=== PATIENT | female | born 1980 | race African-American/Black ===

== ENCOUNTER 2017-05-16 18:37 | Emergency (ER) | payer OTHER ==
[2017-05-16 18:50] VITALS: BP 154/101; PULSE 84; TEMP 98.4; BMI 32.5
[2017-05-16] MEDS ORDERED: ALBUTEROL SO4 2.5/IPRATROPIUM 0.5 INH SOL 3 ML VIAL.NEB. NEB ONE ×2 (19:07→19:08)
--- NOTE | 2017-05-16 19:07 | PDOC ---
History of Present Illness <Je Briggs - Last Filed: 05/16/17 19:07> - General History Source: Patient Exam Limitations: No Limitations - History of Present Illness Initial Comments: 05/16/17 19:11 The patient is a 37 year old female, with a significant past medical history of asthma, who presents to the emergency department with shortness of breath for approximately 2 days. The patient reports her SOB began at approximately 18:00 yesterday with associated dry cough. Patient reports she was unable to sleep due to SOB. She reports using albuterol treatments (which she ran out of today) with no relief, and states she has a nebulizer but has been unable to find it. Patient reports back pain when she coughs. She reports a low grade fever on Sunday, which has resolved. She reports some weakness secondary to SOB but denies any sore throat, chills, headache, or dizziness. She denies any nausea, vomiting, diarrhea, or constipation. She denies any chest pain, diaphoresis, or palpitations. Patient reports she works as a [employer], but denies any sick contacts. She denies any recent travel. Patient has never taken steroids or been hospitalized for asthma. Allergies: NKDA Past Surgical History: Gastric Sleeve (2013), Gastric Bypass(2015), Hiatal hernia repair (2015) Social History: [employer]. Non smoker. No ETOH or drug use. Family History: Mother: DM. Grandmother: DM, HTN PCP: Dr. Nunez <Lilia Naqvi - Last Filed: 05/16/17 19:11> - General Chief Complaint: Asthma Stated Complaint: ASTHMA Time Seen by Provider: 05/16/17 18:54 Past History - Past Medical History Anemia: Yes Asthma: Yes GI Disorders: Yes (HIATAL HERNIA) HTN: Yes - Surgical History Abdominal Surgery: Yes (gastric sleeve) Gastric Stapling: Yes (SLEEVE 2013, BYPASS 2015) - Immunization History Immunization Up to Date: No - Psycho/Social/Smoking Cessation Hx Anxiety: No Suicidal Ideation: No Smoking Status: No Smoking History: Never smoked Have you smoked in the past 12 months: No Number of Cigarettes Smoked Daily: 0 Hx Alcohol Use: No Drug/Substance Use Hx: No Substance Use Type: None <Je Briggs - Last Filed: 05/16/17 19:07> <Lilia Naqvi - Last Filed: 05/16/17 19:11> - Past Medical History Allergies/Adverse Reactions: Allergies Allergy/AdvReac Type Severity Reaction Status Date / Time No Known Allergies Allergy Verified 05/16/17 18:43 Home Medications: Ambulatory Orders Albuterol Sulfate Inhaler - [Ventolin Hfa Inhaler -] 2 inh PO Q4H PRN 05/16/17 Iron 05/16/17 Review of Systems - Review of Systems Able to Perform ROS?: Yes Comments:: 05/16/17 19:11 CONSTITUTIONAL: Present: +fever Absent: no chills, no fatigue EYES: Absent: visual changes ENT: Absent: ear pain, no sore throat CARDIOVASCULAR: Absent: chest pain, no palpitations RESPIRATORY: Present: +cough, +SOB GI: Absent: abdominal pain, no nausea, no vomiting, no constipation, no diarrhea GENITOURINARY: Absent: dysuria, no frequency, no hematuria MUScULOSKELETAL: Present: +back pain Absent: no arthralgia, no myalgia SKIN: Absent: rash NEURO: Absent: headache <Kenzie Naqviarina - Last Filed: 05/16/17 19:11> *Physical Exam - Vital Signs Last Vital Signs Temp Pulse Resp BP Pulse Ox 98.4 F 84 18 154/101 98 05/16/17 18:42 05/16/17 18:42 05/16/17 18:42 05/16/17 18:42 05/16/17 18:42 <Je Briggs - Last Filed: 05/16/17 19:07> - Vital Signs Last Vital Signs Temp Pulse Resp BP Pulse Ox 98.4 F 84 18 154/101 98 05/16/17 18:42 05/16/17 18:42 05/16/17 18:42 05/16/17 18:42 05/16/17 18:42 - Physical Exam Comments: 05/16/17 19:11 GENERAL: Well-appearing, well-nourished. No apparent distress. HEENT: Normocephalic, atraumatic. PERRL, EOM intact. ENT was clear with no signs of upper respiratory infection. CARDIOVASCULAR: Normal S1, S2. Regular rate and rhythm. PULMONARY: Some splinting and intractable coughing with deep inspiration. But no evidence of respiratory distress. Lungs clear to auscultation bilaterally. No wheezing, rales or rhonchi. ABDOMEN: Soft, non-distended, non-tender. EXTREMITIES: Normal ROM in all four extremities. No gross deformities. SKIN: Warm, dry. No rash NEUROLOGICAL: No focal neurological deficits. <Lilia Naqvi - Last Filed: 05/16/17 19:11> *DC/Admit/Observation/Transfer <Je Briggs - Last Filed: 05/16/17 19:07> - Attestations Scribe Attestion: 05/16/17 19:11 Documentation prepared by Lilia Naqvi, acting as medical liaison for Je Trinidad MD. <Lilia Naqvi - Last Filed: 05/16/17 19:11> - Discharge Dispostion Condition at time of disposition: Good
--- NOTE | 2017-05-16 19:48 | PDOC ---
*Physical Exam - Vital Signs Last Vital Signs Temp Pulse Resp BP Pulse Ox 98.4 F 84 18 154/101 98 05/16/17 18:42 05/16/17 18:42 05/16/17 18:42 05/16/17 18:42 05/16/17 18:42 ED Treatment Course - Medications Given in the ED: ED Medications Discontinued Medications Generic Name Dose Route Start Last Admin Trade Name Kymberly PRN Reason Stop Dose Admin Albuterol/Ipratropium 1 amp 05/16/17 19:07 05/16/17 19:08 Duoneb - NEB 05/16/17 19:08 1 amp ONCE ONE Administration Progress Note - Progress Note Progress Note: Care of this patient received from Dr. Panchal. Cough improved and patient feels somewhat better after albuterol nebulizer treatment. Repeat chest exam performed: No wheezing and good air exchange heard. Clinical presentation most consistent with asthmatic bronchitis. The patient will receive a prescription for new albuterol inhaler as well as prescription for an new nebulizer (since patient is not sure where she stored her previous nebulizer since she moved; and albuterol for nebulizer treatments. Azithromycin, Z-Noe, will be started. Work documentation given to patient to not work tomorrow. She should follow-up with her doctor, Dr. Nunez on Sunday as previously scheduled. She should return to the emergency room if she has persistent cough or develops wheezing/ high fever *DC/Admit/Observation/Transfer Diagnosis at time of Disposition: Asthmatic bronchitis Qualifiers: Asthma severity: mild intermittent Asthma complication type: with acute exacerbation Qualified Code(s): J45.21 - Mild intermittent asthma with (acute) exacerbation - Discharge Dispostion Disposition: HOME Condition at time of disposition: Stable - Prescriptions Prescriptions: Nebulizer [Truneb Nebulizer] 1 each MC TID #1 each Albuterol 0.083% Nebulizer Paula [Ventolin 0.083% Nebulizer Soln -] 1 neb NEB Q6H #20 vial Albuterol Sulfate Inhaler - [Ventolin HFA Inhaler -] 1 - 2 inh PO QID #1 inhaler Azithromycin [Zithromax 250mg Tablets -] 250 mg PO UTDICT #6 tab - Referrals Referrals: Norris Nunez MD [Primary Care Provider] - 2 Days - Patient Instructions Printed Discharge Instructions: Asthma -- Adult Additional Instructions: Albuterol inhaler 1-2 puffs every 6 hours Albuterol nebulizer up to 4 times a day as needed for cough/wheezing Begin azithromycin (Z-Noe); taper over 5 days Return to ER if you have persistent cough/wheezing/shortness of breath Follow-up with Dr. Nunez on Sunday as planned No work tomorrow - Post Discharge Activity Work/School Note: Back to Work
== END 2017-05-16 20:10 | disposition home or self-care (01) ==
LOC: FER 18:37
PROC: 3E0F7GC Introduction of Other Therapeutic Substance into Respiratory Tract, Via Natural or Artificial Opening (ICD-10-PCS; principal; 2017-05-16)
DX: J45.21 Mild intermittent asthma with (acute) exacerbation (principal)
CPT/HCPCS: 99282-25

== ENCOUNTER 2018-11-13 16:31 | Emergency (ER) | payer OTHER ==
[2018-11-13 16:38] VITALS: BMI 37.8
--- NOTE | 2018-11-13 16:39 | PDOC ---
History of Present Illness - History of Present Illness Initial Comments: 11/13/18 16:34 38 yo F with h/o asthma who p/w atraumatic R knee pain. Patient reports progressive right knee pain and swelling, beginning 11-11-17, with no identifiable triggers or alleviators. Pain not improved with ice/heat. Patient states that her right knee "clicks," when she walks, but denies difficulty with ambulation. Patient denies SALGADO, vision change, cough, wheezing, palpitations, leg swelling/ pain, N/V, F,C, CP, SOB, urinary complaints, abdominal pain, diarrhea, constipation, BPR, hematuria, lightheadedness, weakness, sensory changes. PMHx: as noted above ROS: as noted SHx: Social Etoh. Denies tobacco, IVDA. Allergies: NKDA <Eren Buitrago - Last Filed: 11/13/18 18:09> <Wing Bryant S - Last Filed: 11/13/18 19:13> - General Chief Complaint: Pain, Acute Stated Complaint: right knee pain Time Seen by Provider: 11/13/18 16:32 Attending Attestation - Resident Resident Name: Eren Buitrago - ED Attending Attestation I have performed the following: I have examined & evaluated the patient, The case was reviewed & discussed with the resident, I agree w/resident's findings & plan, Exceptions are as noted - HPI HPI: Patient complained of pain in the right knee as of this am Denies any trauma, no fever no exposure to wilderness or sick individuals Overweight 11/13/18 18:56 - Physicial Exam PE: Alert, oriented x 3 ambulatory Mild to moderate swelling right knee, normal temperature 11/13/18 19:03 - Medical Decision Making Home rest elevation follow up with PMD in1-3 days 11/13/18 19:12 <Wing Bryant S - Last Filed: 11/13/18 19:13> Past History - Past Medical History Anemia: Yes Asthma: Yes GI Disorders: Yes (HIATAL HERNIA) HTN: Yes - Surgical History Abdominal Surgery: Yes (gastric sleeve) Gastric Stapling: Yes (SLEEVE 2013, BYPASS 2015) - Immunization History Immunization Up to Date: No - Suicide/Smoking/Psychosocial Hx Smoking Status: No Smoking History: Never smoked Have you smoked in the past 12 months: No Number of Cigarettes Smoked Daily: 0 Hx Alcohol Use: No Drug/Substance Use Hx: No Substance Use Type: None <Eren Buitrago - Last Filed: 11/13/18 18:09> <Wing Bryant - Last Filed: 11/13/18 19:13> - Past Medical History Allergies/Adverse Reactions: Allergies Allergy/AdvReac Type Severity Reaction Status Date / Time No Known Allergies Allergy Verified 11/13/18 16:32 Home Medications: Ambulatory Orders NK [No Known Home Medication] 11/13/18 Review of Systems - Review of Systems Comments:: 11/13/18 16:34 GENERAL/CONSTITUTIONAL: No fever or chills. No weakness. HEAD, EYES, EARS, NOSE AND THROAT: No change in vision. No ear pain or discharge. No sore throat. CARDIOVASCULAR: No chest pain or shortness of breath RESPIRATORY: No cough, wheezing, or hemoptysis. GASTROINTESTINAL: No nausea, vomiting, diarrhea or constipation. GENITOURINARY: No dysuria, frequency, or change in urination. MUSCULOSKELETAL:+ Right Knee pain. No joint or muscle swelling. No neck or back pain. SKIN: No rash NEUROLOGIC: No headache, vertigo, loss of consciousness, or change in strength/ sensation. ENDOCRINE: No increased thirst. No abnormal weight change HEMATOLOGIC/LYMPHATIC: No anemia, easy bleeding, or history of blood clots. ALLERGIC/IMMUNOLOGIC: No hives or skin allergy. <Eren Buitrago - Last Filed: 11/13/18 18:09> *Physical Exam - Physical Exam Comments: 11/13/18 16:35 GENERAL: Awake, alert, and fully oriented, in no acute distress HEAD: No signs of trauma, normocephalic, atraumatic EYES: PERRLA, EOMI, sclera anicteric, conjunctiva clear ENT: Hearing grossly normal, nares patent, oropharynx clear without exudates. Moist mucosa NECK: Normal ROM, supple, no lymphadenopathy, JVD, or masses LUNGS: No distress, speaks full sentences, clear to auscultation bilaterally HEART: Regular rate and rhythm, normal S1 and S2, no murmurs, rubs or gallops, peripheral pulses normal and equal bilaterally. EXTREMITIES : Normal inspection, Normal range of motion, no edema. No clubbing or cyanosis. Palpable and symmetric 2+ DP/PT/Radial pulses. KNEE : + Pain with R knee flexion beyond 90 degrees. Pain with right knee extension. +R knee effusion with absent tibial plateau ttp, or skin warmth/ erythema/fluctuance. +clicking sensation with Quoc test/manevuer. + Nml appearing external landmarks. Nml joint laxity. Neg anterior/posterior drawer test. Neg varus/valgus deformity. NEUROLOGICAL: Cranial nerves II through XII grossly intact. Normal speech, normal gait, no focal sensorimotor deficits SKIN: Warm, Dry, normal turgor, no rashes or lesions noted <Eren Buitrago - Last Filed: 11/13/18 18:09> - Vital Signs Last Vital Signs Temp Pulse Resp BP Pulse Ox 98.4 F 84 16 147/100 100 11/13/18 16:32 11/13/18 16:32 11/13/18 16:32 11/13/18 17:14 11/13/18 16:32 <AnnetteRemus S - Last Filed: 11/13/18 19:13> Moderate Sedation - Procedure Monitoring Vital Signs: Procedure Monitoring Vital Signs Temperature 98.4 F 11/13/18 16:32 Pulse Rate 84 11/13/18 16:32 Respiratory Rate 16 11/13/18 16:32 Blood Pressure 147/100 11/13/18 17:14 O2 Sat by Pulse Oximetry (%) 100 11/13/18 16:32 <Mofloria,Remus S - Last Filed: 11/13/18 19:13> ED Treatment Course - Medications Given in the ED: ED Medications Discontinued Medications Generic Name Dose Route Start Last Admin Trade Name Kymberly PRN Reason Stop Dose Admin Ibuprofen 600 mg 11/13/18 16:43 11/13/18 16:55 Motrin - PO 11/13/18 16:44 600 mg ONCE ONE Administration <Moucha,Remus S - Last Filed: 11/13/18 19:13> Medical Decision Making - Medical Decision Making 11/13/18 16:35 38 yo F with h/o asthma who p/w atraumatic right knee pain. BP 174/108, vitals otherwise wnl, AF, A&Ox3. Right knee swelling, otherwise unremarkable on physical exam. Wt.bearing w/out difficulty. No obvious deformity. R/o fracture/ dislocation. No evidence of skin change. Low suspicion septic arthritis. Possible knee sprain/strain, meniscus injury, tendinous injury, degenerative change. Pain control and reassess. ED Course: R KNEE RAD IBUPROFEN 11/13/18 16:39 11/13/18 16:43 Counseled patient on analgesia. 11/13/18 16:56 Provided with orthopedic referall. 11/13/18 18:09 R KNEE RAD: Unremarkable Patient stable for d/c with return precautions. <Eren Buitrago - Last Filed: 11/13/18 18:09> *DC/Admit/Observation/Transfer - Discharge Dispostion Decision to Admit order: No - Attestations Physician Attestion: 11/13/18 16:43 I attest to the information provided in this note. <Eren Buitrago - Last Filed: 11/13/18 18:09> <Wing Bryant - Last Filed: 11/13/18 19:13> Diagnosis at time of Disposition: Right knee pain Qualifiers: Chronicity: acute Qualified Code(s): M25.561 - Pain in right knee - Discharge Dispostion Condition at time of disposition: Stable - Referrals Referrals: Epi Zapata MD [Staff Physician] - - Patient Instructions Printed Discharge Instructions: DI for Knee Pain Additional Instructions: Please return to the emergency department with any new or worsening symptoms or concerns. Please follow up with your primary care physician within 72 hours. Can take Ibuprofen every 6-8 hours as needed for pain. Please follow up with orthopedics surgery within one week.
[2018-11-13] MEDS ORDERED: IBUPROFEN 600 MG TABLET (FP) PO ONE ×2 (16:43→16:50)
[2018-11-13 16:49] VITALS: PULSE 84; TEMP 98.4
[2018-11-13 17:14] VITALS: BP 147/100
== END 2018-11-13 19:29 | disposition home or self-care (01) ==
LOC: FER 16:31
DX: M25.561 Pain in right knee (principal); I10 Essential (primary) hypertension; J45.909 Unspecified asthma, uncomplicated; D64.9 Anemia, unspecified; Z98.84 Bariatric surgery status
CPT/HCPCS: 73562-TC-RT-FY; 99282-25

== ENCOUNTER 2019-02-24 16:38 | Emergency (ER) | payer OTHER ==
--- NOTE | 2019-02-24 16:47 | PDOC ---
History of Present Illness <Celi Thompsonan - Last Filed: 02/24/19 18:20> - General History Source: Patient Exam Limitations: No Limitations - History of Present Illness Initial Comments: 39 yo F w a pmh of gastric sleeve and then bypass presents to the ER with one week of left shoulder pain. She states that she feels as if her shoulder keeps popping in and then out of the socket. It is extremely painful for her to move her shoulder in any direction secondary to pain and concern than it will pop out of the pocket. She has been experiencing this pain for a week straight and did not want to come to the hospital for this but because the pain did not go away she came to have her shoulder evaluated. PCP: Dr. Nunez PSH: Gastric sleeve, gastric bypass Social Hx: Drinks recreationally. Denies smoking or other substance usage. Allergies: NKA, NKDA <Hunter Carpio - Last Filed: 02/24/19 19:50> - General Chief Complaint: Injury Stated Complaint: LEFT SHOULDER PAIN Time Seen by Provider: 02/24/19 16:47 Past History <Leo Thompson - Last Filed: 02/24/19 18:20> - Past Medical History Anemia: Yes Asthma: Yes COPD: No GI Disorders: Yes (HIATAL HERNIA) HTN: Yes - Surgical History Abdominal Surgery: Yes (gastric sleeve) Gastric Stapling: Yes (SLEEVE 2013, BYPASS 2015) - Immunization History Immunization Up to Date: No - Suicide/Smoking/Psychosocial Hx Smoking Status: No Smoking History: Never smoked Have you smoked in the past 12 months: No Number of Cigarettes Smoked Daily: 0 Hx Alcohol Use: No Drug/Substance Use Hx: No Substance Use Type: None <Hunter Carpio - Last Filed: 02/24/19 19:50> - Past Medical History Allergies/Adverse Reactions: Allergies Allergy/AdvReac Type Severity Reaction Status Date / Time No Known Allergies Allergy Verified 02/24/19 16:40 Home Medications: Ambulatory Orders Ibuprofen 600 mg PO TID PRN 02/24/19 Naproxen 500 mg PO BID #14 tablet 02/24/19 Review of Systems - Review of Systems Able to Perform ROS?: Yes Comments:: CONSTITUTIONAL: Absent: fever, no chills, no fatigue EYES: Absent: visual changes ENT: Absent: ear pain, no sore throat CARDIOVASCULAR: Absent: chest pain, no palpitations RESPIRATORY: Absent: cough, no SOB GI: Absent: abdominal pain, no nausea, no vomiting, no constipation, no diarrhea GENITOURINARY: Absent: dysuria, no frequency, no hematuria MUSKULOSKELETAL: Present: Arthralgia Absent: back pain, no myalgia SKIN: Absent: rash NEURO: Absent: headache <Hunter Carpio - Last Filed: 02/24/19 19:50> *Physical Exam - Vital Signs Last Vital Signs Temp Pulse Resp BP Pulse Ox 98.3 F 92 H 16 155/108 H 99 02/24/19 16:39 02/24/19 18:09 02/24/19 16:39 02/24/19 18:09 02/24/19 18:09 <Leo Thompson - Last Filed: 02/24/19 18:20> - Physical Exam Comments: LEFT SHOULDER: Limited ROM at the shoulder joint. No palpable deformities. Full sensation. There is significant pain upon movement in most directions. GENERAL: Well-appearing, well-nourished. Mild distress. HEENT: Normocephalic, atraumatic. PERRL, EOM intact. CARDIOVASCULAR: Normal S1, S2. Regular rate and rhythm. PULMONARY: No evidence of respiratory distress. Lungs clear to auscultation bilaterally. No wheezing, rales or rhonchi. ABDOMEN: Soft, non-distended, non-tender. EXTREMITIES: Normal ROM in other 3 extremities. No gross deformities. SKIN: Warm, dry. No rash NEUROLOGICAL: No focal neurological deficits. <Hunter Carpio - Last Filed: 02/24/19 19:50> ED Treatment Course - Medications Given in the ED: ED Medications Discontinued Medications Generic Name Dose Route Start Last Admin Trade Name Freq PRN Reason Stop Dose Admin Ibuprofen 600 mg 02/24/19 17:26 02/24/19 17:35 Motrin - PO 02/24/19 17:27 600 mg ONCE ONE Administration <Leo Thompson - Last Filed: 02/24/19 18:20> Medical Decision Making - Medical Decision Making 39 yo F w a pmh of gastric sleeve and then bypass presents to the ER with one week of left shoulder pain. She states that she feels as if her shoulder keeps popping in and then out of the socket. It is extremely painful for her to move her shoulder in any direction secondary to pain and concern than it will pop out of the pocket. She has been experiencing this pain for a week straight and did not want to come to the hospital for this but because the pain did not go away she came to have her shoulder evaluated. VS: Hypertensive DDx IBNLT: Shoulder dislocation, shoulder fx, adhesive capsulitis, rotator cuff injury. X-rays negative for acute fx. Will DC with sling and ortho FU <Hunter Carpio - Last Filed: 02/24/19 19:50> *DC/Admit/Observation/Transfer <Leo Thompson - Last Filed: 02/24/19 18:20> <Hunter Carpio - Last Filed: 02/24/19 19:50> Diagnosis at time of Disposition: Shoulder pain, left - Discharge Dispostion Disposition: HOME Condition at time of disposition: Good - Prescriptions Prescriptions: Naproxen 500 mg PO BID #14 tablet - Referrals Referrals: Norris Nunez MD [Primary Care Provider] - Stephon Morrison DO [Staff Physician] - - Patient Instructions Printed Discharge Instructions: DI for Shoulder Pain Additional Instructions: You must follow up with an orthopedic surgeon for further evaluation of your shoulder pain. You may need a MRI to rule out rotator cuff injury. Keep your arm in the sling until you see an orthopedist. Take naproxen twice daily as prescribed for pain. If you experience any chest pain, shortness of breath, or any other concerning symptoms, return to the ER immediately. You also need to have your blood pressure re-checked by your primary doctor, as it was slightly elevated today. Uncontrolled blood pressure can eventually lead to kidney disease, heart disease, other serious illness, disability, or even . - Post Discharge Activity
[2019-02-24 16:58] VITALS: TEMP 98.3; BMI 38.6
[2019-02-24] MEDS ORDERED: IBUPROFEN 600 MG TABLET (FP) PO ONE ×2 (17:26→17:34)
[2019-02-24 18:10] VITALS: BP 155/108; PULSE 92
--- NOTE | 2019-02-24 18:20 | PDOC ---
Attending Attestation - Resident Resident Name: KeithjustinoYinkaHunter - ED Attending Attestation I have performed the following: I have examined & evaluated the patient, The case was reviewed & discussed with the resident, I agree w/resident's findings & plan, Exceptions are as noted - HPI HPI: 02/24/19 18:16 39 F with h/o HTN presents to ED with 1 week of L shoulder pain. Pt states that she initially injured it months ago when someone pulled on her arm. She states that she felt it pop out and back in. Over the past week, she has felt as if her shoulder is popping in and out when she moves it. Denies any new injury. States that the pain is worse with movement of her arm. Denies any numbness/ tingling. Denies CP/SOB. - Physicial Exam PE: 02/24/19 18:18 GENERAL: Awake, alert, and fully oriented, in no acute distress. HEAD: No signs of trauma EYES: PERRLA, EOMI, sclera anicteric, conjunctiva clear ENT: Auricles normal inspection, hearing grossly normal, nares patent, oropharynx clear without exudates. Moist mucosa NECK: Nontender, no stepoffs, Normal ROM, supple, no lymphadenopathy, JVD, or masses LUNGS: Breath sounds equal, clear to auscultation bilaterally. No wheezes, and no crackles HEART: Regular rate and rhythm, normal S1 and S2, no murmurs, rubs or gallops ABDOMEN: Soft, nontender, normoactive bowel sounds. No guarding, no rebound. No masses EXTREMITIES: + L shoulder with TTP over anterior glenoid, full passive ROM, active ROM limited 2/2 pain, no deformity NEUROLOGICAL: Cranial nerves II through XII intact. 5/5 strength and sensation in all extremities, Normal speech, normal gait, normal cerebellar function SKIN: Warm, Dry, normal turgor, no rashes or lesions noted. - Medical Decision Making 02/24/19 18:18 39 F with L shoulder pain. Likely rotator cuff injury vs bursitis. Pt with no clinical signs of dislocation. Pt noted to be hypertensive in ED, likely 2/2 med noncompliance as she has not taken her BP meds in years. Pt denies any CP/ SOB, making ACS unlikely. Equal pulses bilaterally, making dissection unlikely. - XR shoulder - Motrin 02/24/19 21:57 XR without dislocation/fx Pt placed in shoulder immobilizer, given ortho f/u BP improving without intervention Pt is well appearing, with normal vitals. Clinically stable for DC at this time. I discussed the physical exam findings, ancillary test results and final diagnoses with the patient. I answered all of the patient's questions. The patient was satisfied with the care received and felt comfortable with the discharge plan and treatment plan. The patient agrees to follow up with the primary care physician within 24-72 hours.
== END 2019-02-24 19:27 | disposition home or self-care (01) ==
LOC: SUPCPDRO 16:38 → FER 16:38
DX: M25.512 Pain in left shoulder (principal); Z98.84 Bariatric surgery status; J45.909 Unspecified asthma, uncomplicated; I10 Essential (primary) hypertension
CPT/HCPCS: 73030-TC-LT-FY; 81025; 99282-25

== ENCOUNTER 2020-01-25 16:51 | Emergency (ER) | payer OTHER ==
[2020-01-25 17:08] VITALS: BP 162/100; PULSE 95; TEMP 99.6; BMI 37.8
--- NOTE | 2020-01-25 17:31 | PDOC ---
History of Present Illness - General Chief Complaint: Pain Stated Complaint: BACK PAIN Time Seen by Provider: 01/25/20 17:09 History Source: Patient Exam Limitations: No Limitations - History of Present Illness Initial Comments: 01/25/20 17:37 HISTORY OF PRESENT ILLNESS: 39-year-old woman past medical history of asthma (3- 4 annual visits; no intubations) presents emergency department for evaluation of dry cough and upper back pain over 3 days. Patient works at [employer] with 7 known coronavirus positive patients. Patient denies any fevers but reports increased shortness of breath. Patient has been using her home nebulizer treatments but only minimally helped. Patient speaking full sentences and has normal vital signs upon arrival. No recent travel or sick contacts. PAST MEDICAL HISTORY: Asthma SURGICAL HISTORY: Denies ALLERGIES: No known drug allergies REVIEW OF SYSTEMS General/Constitutional: Denies fever or chills. Denies weakness, weight change. HEENT: Denies change in vision. Denies ear pain or discharge. Denies sore throat. Cardiovascular: Denies chest pain or shortness of breath. Respiratory: See HPI Gastrointestinal: Denies nausea, vomiting, diarrhea or constipation. Denies rectal bleeding. Genitourinary: Denies dysuria, frequency, or change in urination. Musculoskeletal: See HPI Skin and breasts: Denies rash or easy bruising. Neurologic: Denies headache, vertigo, loss of consciousness, or loss of sensation. Psychiatric: Denies depression or anxiety. Endocrine: Denies increased thirst. Denies abnormal weight change. Hematologic/Lymphatic: Denies anemia, easy bleeding, or history of blood clots. Allergic/Immunologic: Denies hives or skin allergy. Denies latex allergy. PHYSICAL EXAM General Appearance: Well-appearing, appropriately dressed. No apparent distress, no intoxication. HEENT: EOMI, PERRLA, normal ENT inspection, normal voice, TMs normal, pharynx normal. No conjunctival pallor. No photophobia, scleral icterus. Neck: Supple. Trachea midline. No tenderness, rigidity, carotid bruit, stridor, lymphadenopathy, or thyromegaly. Respiratory/Chest: Lungs CTAB. No shortness of breath, chest tenderness, respiratory distress, accessory muscle use. No crackles, rales, rhonchi, stridor, wheezing, dullness Cardiovascular: RRR. S1, S2. No JVD, murmur, bradycardia, tachycardia. 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 Fully oriented, alert. Appropriate mood/affect. Motor strength 5/5. No appreciable EOM palsy, facial droop or sensory deficit. 01/25/20 17:42 Past History - Past Medical History Allergies/Adverse Reactions: Allergies Allergy/AdvReac Type Severity Reaction Status Date / Time No Known Allergies Allergy Verified 01/25/20 17:08 Home Medications: Ambulatory Orders Ibuprofen 600 mg PO TID PRN 02/24/19 Naproxen 500 mg PO BID #14 tablet 02/24/19 Azithromycin [Zithromax 250mg Tablets -] 250 mg PO UTDICT #6 tab 01/25/20 Anemia: Yes Asthma: Yes COPD: No GI Disorders: Yes (HIATAL HERNIA) HTN: Yes - Surgical History Abdominal Surgery: Yes (gastric sleeve) Gastric Stapling: Yes (SLEEVE 2013, BYPASS 2015) - Immunization History Immunization Up to Date: No - Psycho Social/Smoking Cessation Hx Smoking Status: No Smoking History: Never smoked Have you smoked in the past 12 months: No Number of Cigarettes Smoked Daily: 0 Hx Alcohol Use: No Drug/Substance Use Hx: No Substance Use Type: None *Physical Exam - Vital Signs Last Vital Signs Temp Pulse Resp BP Pulse Ox 99.6 F 95 H 18 162/100 100 01/25/20 17:04 01/25/20 17:04 01/25/20 17:04 01/25/20 17:04 01/25/20 17:04 Medical Decision Making - Medical Decision Making 01/25/20 17:36 A/P: 39-year-old woman with cough and upper back pain for 3 days Patient with known coronavirus exposures x7 Speaking full sentences No stridor noted Lungs clear to auscultation bilaterally Patient is refusing analgesia at this time Chest x-ray Discharge home with coronavirus precautions and prescription for azithromycin given patient's known pulmonary disease and frequent exposures. I discussed the physical exam findings, ancillary test results and final diagnoses with the patient. I answered all of the patient's questions. The patient was satisfied with the care received and felt comfortable with the discharge plan and treatment plan. The patient will call their primary care physician within 24 hours to arrange follow-up and will return to the Emergency Department with any new, persistent or worsening symptoms. Portions of this note have been documented using voice recognition software. As a result, errors may occur in the diploma medical assistant process. Effort has been made to correct all grammatical and diploma medical assistant error, but some may have been missed which may produce sporadic inaccurate diploma medical assistant or nonsensical phrases. 01/25/20 17:51 Chest x-ray as read by me: Aurelia sharp. Cardiac silhouette is within normal limits. Lung shen clear without infiltrate or consolidation noted. Discharge - Discharge Information Problems reviewed: Yes Clinical Impression/Diagnosis: URI (upper respiratory infection) Qualifiers: URI type: unspecified viral URI Qualified Code(s): J06.9 - Acute upper respiratory infection, unspecified Condition: Fair Disposition: HOME - Admission No - Additional Discharge Information Prescriptions: Azithromycin [Zithromax 250mg Tablets -] 250 mg PO UTDICT #6 tab - Follow up/Referral - Patient Discharge Instructions Additional Instructions: Drink 2-3 L of water daily Take Tylenol 650 mg every 6 hours for fever and pain Return to the nearest ER if short of breath, unable to swallow or feeling sicker Followup with your doctor in one to 2 days Covid-19 Symptoms and Knowing When to Stay Home and Return to Work The following is the most recent guidance from our Infection Prevention and Control team on the symptoms and duration of Covid-19, along with when to stay home from work, when you may return, and what procedures to follow when you are ready to come back. PLease call [facility] : [facility] CORONAVIRUS HOTLINE: What are the most common symptoms of Covid-19? - Muscle aches - Loss of energy and appetite - Persistent cough - Low grade fever lasting 24 hours or more, causing the person to feel feverish with chills If I have Covid-19, how long can I expect to feel sick? - Typically one week. - The majority of individuals feel better in 5 to 7 days with rest and [id number] cold and flu medications. How does illness progress in cases of Covid-19? - A few individuals progress to pneumonia (infection of the lungs) and/or pneumonitis (inflammation of the lungs). - Pneumonia/pneumonitis causes shortness of breath, worsening cough and in most cases, fever. - Individuals with the symptoms of Covid-19 who develop a worsening cough and shortness of breath must seek care quickly. If Im concerned about my symptoms or feel unwell, when must I stay home from work/ school? If you have muscle aches, cough, fatigue and low-grade fever, do not go to work/ school - Post Discharge Activity
== END 2020-01-25 17:54 | disposition home or self-care (01) ==
LOC: JERFT 16:51
DX: J06.9 Acute upper respiratory infection, unspecified (principal); B97.89 Other viral agents as the cause of diseases classified elsewhere; Z20.828 Contact with and (suspected) exposure to other viral communicable diseases; J45.909 Unspecified asthma, uncomplicated; I10 Essential (primary) hypertension; D64.9 Anemia, unspecified; K44.9 Diaphragmatic hernia without obstruction or gangrene; Z98.84 Bariatric surgery status
CPT/HCPCS: 71045-TC-FY; 99283-25

== ENCOUNTER 2020-07-05 08:46 | Inpatient (IN) | payer OTHER ==
[2020-07-05] MEDS ORDERED: LACTATED RINGERS SOLUTION 1000 ML INFUS.BAG IV ONE (09:20)
[2020-07-05 09:41] LABS: BASO % 0.5 % (0-2.0); EOS % 0.6 % (0-4.5); HEMATOCRIT 23.3 % (32.4-45.2); LYMPH % 29.9 % (8-40); MCHC 29.1 g/dl (32.0-36.0); MEAN CELL VOLUME 56.5 fl (80-96); MEAN PLT VOLUME 8.4 fl (7.5-11.1); MONO % 7.3 % (3.8-10.2); NEUT % 61.7 % (42.8-82.8); PLATELET COUNT 381 K/MM3 (134-434); RBC 4.12 M/mm3 (3.60-5.2); RDW 24.9 % (11.6-15.6); WHITE BLOOD COUNT 8.4 K/mm3 (4.0-10.0)
[2020-07-05 09:44] LABS: HEMOGLOBIN 6.8 GM/dL (10.7-15.3); MCH 16.4 pg (25.7-33.7)
[2020-07-05 10:04] LABS: ALBUMIN 4.2 g/dl (3.4-5.0); ALK PHOS 96 U/L (45-117); ANION GAP 8 MMOL/L (8-16); BILIRUBIN,TOTAL 0.9 mg/dL (0.2-1); BLOOD UREA NITROGEN 8.1 mg/dL (7-18); CALCIUM 9.4 mg/dL (8.5-10.1); CHLORIDE 101 mmol/L (98-107); CO2 25 mmol/L (21-32); CREATININE 1.2 mg/dL (0.55-1.3); GLUCOSE,RANDOM 144 mg/dL (74-106); MAGNESIUM 1.7 mg/dL (1.8-2.4); PHOSPHOROUS 2.7 mg/dL (2.5-4.9); POTASSIUM 4.1 mmol/L (3.5-5.1); SGOT/AST 17 U/L (15-37); SGPT/ALT 25 U/L (13-61); SODIUM 134 mmol/L (136-145); TOT PROT 8.6 g/dl (6.4-8.2)
--- NOTE | 2020-07-05 10:33 | PDOC ---
Documentation entered by Merry Thomas SCRIBE, acting as scribe for Dre Meyer MD. Dre Meyer MD: This documentation has been prepared by the jannibe, Merry Thomas SCRIBE, under my direction and personally reviewed by me in its entirety. I confirm that the documentation accurately reflects all work, treatment, procedures, and medical decision making performed by me. History of Present Illness - General Chief Complaint: Weakness Stated Complaint: FATIGUE / DIZZINESS Time Seen by Provider: 07/05/20 09:16 History Source: Patient Exam Limitations: No Limitations - History of Present Illness Initial Comments: 07/05/20 09:43 The patient is a 40-year-old female with a past medical history significant for asthma, HTN (pt reports she doesnt take any medication) and s/p gastric sleeve (with complication requiring 4 units of blood) who presents to the emergency department with 5 days of generalized weakness, lightheadedness (while standin g), and poor appetite. THis AM, the patient reports at work she kept sitting down secondary to bring fatigued and patients boss sent the patient to the ER for evaluation. The patient reports similar episodes in the past that got better, without interventions. Denies fever, chills, chest pain, shortness of breath, abdominal pain. Denies recent travel. 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 LMP: June 20 (heavy menses with clots, pt reports she requires multiple pads and tampons ) Allergies: NKA Surgical history: Hiatal hernia and gastric sleeve. PCP: Dr. Rivas Nunez. Past History - Medical History Allergies/Adverse Reactions: Allergies Allergy/AdvReac Type Severity Reaction Status Date / Time No Known Allergies Allergy Verified 07/05/20 08:49 Home Medications: Ambulatory Orders Ibuprofen 600 mg PO TID PRN 02/24/19 Naproxen 500 mg PO BID #14 tablet 02/24/19 Azithromycin [Zithromax 250mg Tablets -] 250 mg PO UTDICT #6 tab 01/25/20 Anemia: Yes Asthma: Yes COPD: No GI Disorders: Yes (HIATAL HERNIA) HTN: Yes - Surgical History Abdominal Surgery: Yes (gastric sleeve) Gastric Stapling: Yes (SLEEVE 2013, BYPASS 2015) - Reproductive History Is Patient Now?: No - Immunization History Immunization Up to Date: Yes - Psycho-Social/Smoking History Smoking Status: No Smoking History: Never smoked Have you smoked in the past 12 months: No Number of Cigarettes Smoked Daily: 0 - Substance Abuse Hx (Audit-C & DAST Scrn) How often the patient has a drink containing alcohol: Never Score: In Men: 4 or > Positive; In Women: 3 or > Positive: 0 Screen Result (Pos requires Nsg. Audit-10AR): Negative In the last yr the pt used illegal drug/Rx for NonMed reason: No Score: Yes response is considered Positive: 0 Screen Result (Positive result requires Nsg. DAST-10): Negative Review of Systems - Review of Systems Able to Perform ROS?: Yes Comments:: 07/05/20 09:44 GENERAL/CONSTITUTIONAL: +generalized weakness. +poor appetite. +fatigue. No fever or chills. HEAD, EYES, EARS, NOSE AND THROAT: No change in vision. No ear pain or discharge. No sore throat. GASTROINTESTINAL: +poor appetite. No nausea, vomiting, diarrhea or constipation. GENITOURINARY: No dysuria, frequency, or change in urination. CARDIOVASCULAR: No chest pain or shortness of breath. RESPIRATORY: No cough, wheezing, or hemoptysis. MUSCULOSKELETAL: No joint or muscle swelling or pain. No neck or back pain. SKIN: No rash NEUROLOGIC: +lightheadedness. No headache, loss of consciousness, or change in strength/sensation. ENDOCRINE: No increased thirst. No abnormal weight change. HEMATOLOGIC/LYMPHATIC: No anemia, easy bleeding, or history of blood clots. ALLERGIC/IMMUNOLOGIC: No hives or skin allergy. *Physical Exam - Vital Signs Last Vital Signs Temp Pulse Resp BP Pulse Ox 98.1 F 102 H 20 181/93 H 100 07/05/20 08:50 07/05/20 08:50 07/05/20 08:50 07/05/20 08:50 07/05/20 09:04 - Physical Exam 07/05/20 09:47 GENERAL: +appears fatigued. Awake, alert, and fully oriented, in no acute distress EYES: PERRLA, EOMI, sclera anicteric, +pale conjunctiva ENT: Auricles normal inspection, hearing grossly normal, nares patent, oropharynx clear without exudates. Moist mucosa NECK: Normal ROM, supple, no lymphadenopathy, JVD, or masses LUNGS: Breath sounds equal, clear to auscultation bilaterally. No wheezes, and no crackles HEART: Regular rate and rhythm, normal S1 and S2, no murmurs, rubs or gallops ABDOMEN: Soft, nontender, normoactive bowel sounds. No guarding, no rebound. No masses RECTAL: declines EXTREMITIES: Normal range of motion, no edema. No clubbing or cyanosis. No cords, erythema, or tenderness NEUROLOGICAL: Normal speech, cranial nerves intact, equal strength and sensation b/l SKIN: Warm, Dry, normal turgor, no rashes or lesions noted. ED Treatment Course - LABORATORY CBC & Chemistry Diagram: 07/05/20 09:10 07/05/20 09:10 Medical Decision Making - Medical Decision Making 07/05/20 09:59 40-year-old female with a history of hiatal hernia, asthma, gastric sleeve presents the emergency department with 5 days of progressive generalized weakness, poor appetite, and lightheadedness. Vitals remarkable for elevated blood pressure. Patient reports she was previous ly on antihypertensive medications but is no longer on them. Heart rate is also mildly elevated to 102. Remainder of vitals within normal limits. Exam with pale appearance otherwise unremarkable. Patient's labs remarkable for hemoglobin of 6.8, likely attributable to her heavy periods. Her MCV is 56 consistent with iron deficiency anemia. States she is supposed to be on iron supplements but has not been taking them because they do not make her feel well. She declines rectal exam. Plan to transfuse patient and admit. 07/05/20 10:55 Case discussed with resident physician Dr. Castle. Patient accepted for admission to Dr. Baez's service. Case discussed in detail with admitting physician including history, physical exam and ancillary studies. Admitting physician has assumed care for the patient, will follow all pending diagnostics and will complete the evaluation and treatment. Discharge - Discharge Information Problems reviewed: Yes Clinical Impression/Diagnosis: Anemia requiring transfusions, Lightheadedness, Iron deficiency anemia, Generalized weakness - Follow up/Referral Referrals: Norris Nunez MD [Primary Care Provider] - - Patient Discharge Instructions - Post Discharge Activity
--- NOTE | 2020-07-05 11:16 | HP ---
CHIEF COMPLAINT: Lightheadedness/Weakness PCP: Dr Norris Nunez HISTORY OF PRESENT ILLNESS: Patient is a 40 y/o F with a significant past medical history of Anemia, HTN (pt reports she is not taking any medications), s/p gastric sleeve (with complication requiring 4 units of blood, Mitral valve prolapse, and asthma who presented to [facility] due to lightheadedness and generalized weakness. Patient endorses that for the past 5 days, she has been experiencing generalized weakness and decreased appetite. Patient also states she becomes lightheaded when she is standing. Today at her work, her co-worker checked her BGM which was 160. She was subsequently referred to our emergency department for further work up in light of her symptoms and pale complexion. Of note, patient endorses she has been experiencing heavy menstrual periods for a long time. Cycles are regular however periods are heavy requiring multiple pads/tampons (LMP: June 20). Denies dark stool or alvaro blood in stool. No other history of bleeding. PMH- As per HPI SocialHx- Noncontributory FamHx- Mother DM and HTN SurgHx- Gastric Sleeve 2013 and Gastric Bypass 2015 with hiatal hernia repair NKDA ER course was notable for: (1) HGB 6.8 (2) BP 183 systolic (3) HOME MEDICATIONS: Home Medications Medication Instructions Recorded NK [No Known Home Medication] 07/05/20 REVIEW OF SYSTEMS CONSTITUTIONAL: PRESENT: generalized weakness, malaise, loss of appetite HEENT: Absent: rhinorrhea, nasal congestion, throat pain, throat swelling, difficulty swallowing, mouth swelling, ear pain, eye pain, visual changes CARDIOVASCULAR: PRESENT: palpitations, lightheadedness RESPIRATORY: Absent: cough, shortness of breath, dyspnea with exertion, orthopnea, wheezing, stridor, hemoptysis GASTROINTESTINAL: Absent: abdominal pain, abdominal distension, nausea, vomiting, diarrhea, constipation, melena, hematochezia GENITOURINARY: Absent: dysuria, frequency, urgency, hesitancy, hematuria, flank pain, genital pain MUSCULOSKELETAL: Absent: myalgia, arthralgia, joint swelling, back pain, neck pain SKIN: Absent: rash, itching, pallor HEMATOLOGIC/IMMUNOLOGIC: Absent: easy bleeding, easy bruising, lymphadenopathy, frequent infections ENDOCRINE: Absent: unexplained weight gain, unexplained weight loss, heat intolerance, cold intolerance NEUROLOGIC: Absent: headache, focal weakness or paresthesias, dizziness, unsteady gait, seizure, mental status changes, bladder or bowel incontinence PSYCHIATRIC: Absent: anxiety, depression, suicidal or homicidal ideation, hallucinations. PHYSICAL EXAMINATION Vital Signs - 24 hr 07/05/20 07/05/20 08:50 09:04 Temperature 98.1 F Pulse Rate 102 H Respiratory 20 Rate Blood Pressure 181/93 H O2 Sat by Pulse 100 100 Oximetry (%) GENERAL: NAD AAOx3 HEAD: Atraumatic/Normocephalic EYES: EOMI Sclera Clear EARS, NOSE, THROAT: MMM. NECK: Supple LUNGS: CTAB HEART: JULIANE RUSB ABDOMEN: Soft, NDNT MUSCULOSKELETAL: FROM LOWER EXTREMITIES: No CCE NEUROLOGICAL: Cranial nerves II-XII intact. PSYCHIATRIC: Cooperative. Good eye contact. Appropriate mood and affect. SKIN: Pale Complexion Laboratory Results - last 24 hr 07/05/20 07/05/20 07/05/20 09:10 09:10 09:10 WBC 8.4 RBC 4.12 Hgb 6.8 L* Hct 23.3 L D MCV 56.5 L MCH 16.4 L D MCHC 29.1 L RDW 24.9 H Plt Count 381 D MPV 8.4 D Absolute Neuts (auto) 5.2 Neutrophils % 61.7 Lymphocytes % 29.9 Monocytes % 7.3 Eosinophils % 0.6 D Basophils % 0.5 Nucleated RBC % 0 Sodium 134 L Potassium 4.1 Chloride 101 Carbon Dioxide 25 Anion Gap 8 BUN 8.1 Creatinine 1.2 Est GFR (CKD-EPI)AfAm 66.39 Est GFR (CKD-EPI)NonAf 57.28 Random Glucose 144 H Calcium 9.4 Phosphorus 2.7 Magnesium 1.7 L Total Bilirubin 0.9 AST 17 ALT 25 Alkaline Phosphatase 96 Troponin I < 0.02 Total Protein 8.6 H Albumin 4.2 Serum , Qual Negative ASSESSMENT/PLAN: Patient is a 40 y/o F with a significant past medical history of Anemia, HTN (pt reports she is not taking any medications), s/p gastric sleeve (with complication requiring 4 units of blood, Mitral valve prolapse, and asthma who presented to [facility] due to lightheadedness and generalized weakness. #Generalized weakness 2/2 Iron deficiency anemia -H/H 6.8/ 23.3 -Iron 56 -History of heavy menstrual periods -Will order Iron studies, LDH, and TSH in light of mennorhagia -Will transfuse 1 uPRBC, IV iron and recheck CBC -CBC in am #HTN -Patient not on any medication. Will start on 5 mg Daily of Norvasc # Asthma -Resume Albuterol Rescue inhaler #FEN -No standing Fluids -Monitor Electrolytes -Sodium Controlled Diet starting tonight #DVT ppx: -SCDs #Dispo: -Med-Surg Family Medical History Family History: As Documented Visit type - Emergency Visit Emergency Visit: Yes ED Registration Date: 07/05/20 Care time: The patient presented to the Emergency Department on the above date and was hospitalized for further evaluation of their emergent condition. - New Patient This patient is new to me today: Yes Date on this admission: 07/05/20 - Critical Care Critical Care patient: No ATTENDING PHYSICIAN STATEMENT I saw and evaluated the patient. I reviewed the resident's note and discussed the case with the resident. I agree with the resident's findings and plan as documented. SUBJECTIVE: OBJECTIVE: ASSESSMENT AND PLAN:
[2020-07-05 11:21] LABS: ANISOCYTOSIS 3+; MACROCYTOSIS 0; PLATELET ESTIMATE NORMAL; TEAR DROP CELLS 1+
--- NOTE | 2020-07-05 11:24 | PN ---
Teaching Attending Note Name of Resident: Bradley Castle ATTENDING PHYSICIAN STATEMENT I saw and evaluated the patient. I reviewed the resident's note and discussed the case with the resident. I agree with the resident's findings and plan as documented. SUBJECTIVE:Feeling dizziness and lightheadedness OBJECTIVE: Vital Signs Temperature 98.1 F 07/05/20 08:50 Pulse Rate 102 H 07/05/20 08:50 Respiratory Rate 20 07/05/20 08:50 Blood Pressure 181/93 H 07/05/20 08:50 O2 Sat by Pulse Oximetry (%) 100 07/05/20 09:04 General: Young woman woman, comfortable, not in distress HEENT mucous membranes moist, + anemia, no jaundice, PERRLA, no nystagmus Neck: No JVD, supple, no bruit, thyroid palpably normal, normal carotid pulsations. Chest: Nontender, clear to auscultation bilaterally CVS: S1-S2 regular no murmur/gallop/rub Abdomen: Nondistended, soft, bowel sounds present. Extremities: No edema., No Calf tenderness, pulses present FIRER LOW PRESSURE: AO X3 , no gross motor sensory deficit CBC,CMP WBC 8.4 K/mm3 (4.0-10.0) 07/05/20 09:10 RBC 4.12 M/mm3 (3.60-5.2) 07/05/20 09:10 Hgb 6.8 GM/dL (10.7-15.3) L* 07/05/20 09:10 Hct 23.3 % (32.4-45.2) L D 07/05/20 09:10 MCV 56.5 fl (80-96) L 07/05/20 09:10 MCH 16.4 pg (25.7-33.7) L D 07/05/20 09:10 MCHC 29.1 g/dl (32.0-36.0) L 07/05/20 09:10 RDW 24.9 % (11.6-15.6) H 07/05/20 09:10 Plt Count 381 K/MM3 (134-434) D 07/05/20 09:10 MPV 8.4 fl (7.5-11.1) D 07/05/20 09:10 Absolute Neuts (auto) 5.2 K/mm3 (1.5-8.0) 07/05/20 09:10 Neutrophils % 61.7 % (42.8-82.8) 07/05/20 09:10 Lymphocytes % 29.9 % (8-40) 07/05/20 09:10 Monocytes % 7.3 % (3.8-10.2) 07/05/20 09:10 Eosinophils % 0.6 % (0-4.5) D 07/05/20 09:10 Basophils % 0.5 % (0-2.0) 07/05/20 09:10 Nucleated RBC % 0 % (0-0) 07/05/20 09:10 Hypochromia 2+ 07/05/20 09:10 Platelet Estimate Normal 07/05/20 09:10 Platelet Comment Present 07/05/20 09:10 Polychromasia 1+ 07/05/20 09:10 Poikilocytosis 2+ 07/05/20 09:10 Anisocytosis 3+ 07/05/20 09:10 Microcytosis 3+ 07/05/20 09:10 Macrocytosis 0 07/05/20 09:10 Tear Drop Cells 1+ 07/05/20 09:10 Schistocytes 1+ 07/05/20 09:10 Sodium 134 mmol/L (136-145) L 07/05/20 09:10 Potassium 4.1 mmol/L (3.5-5.1) 07/05/20 09:10 Chloride 101 mmol/L (98-107) 07/05/20 09:10 Carbon Dioxide 25 mmol/L (21-32) 07/05/20 09:10 Anion Gap 8 MMOL/L (8-16) 07/05/20 09:10 BUN 8.1 mg/dL (7-18) 07/05/20 09:10 Creatinine 1.2 mg/dL (0.55-1.3) 07/05/20 09:10 Est GFR (CKD-EPI)AfAm 66.39 07/05/20 09:10 Est GFR (CKD-EPI)NonAf 57.28 07/05/20 09:10 Random Glucose 144 mg/dL (74-106) H 07/05/20 09:10 Calcium 9.4 mg/dL (8.5-10.1) 07/05/20 09:10 Phosphorus 2.7 mg/dL (2.5-4.9) 07/05/20 09:10 Magnesium 1.7 mg/dL (1.8-2.4) L 07/05/20 09:10 Total Bilirubin 0.9 mg/dL (0.2-1) 07/05/20 09:10 AST 17 U/L (15-37) 07/05/20 09:10 ALT 25 U/L (13-61) 07/05/20 09:10 Alkaline Phosphatase 96 U/L (45-117) 07/05/20 09:10 Troponin I < 0.02 ng/ml (0.00-0.05) 07/05/20 09:10 Total Protein 8.6 g/dl (6.4-8.2) H 07/05/20 09:10 Albumin 4.2 g/dl (3.4-5.0) 07/05/20 09:10 Serum , Qual Negative 07/05/20 09:10 Chest x-ray: EKG: ASSESSMENT AND PLAN: 40-year-old female history of morbid obesity status post gastric sleeve surgery complicated with excessive perioperative bleeding received 5 units of blood transfusion, today presented with 5 days history of feeling dizzy and generalized weakness apparently after changing posture with lightheadedness today, in the ED work-up shows microcytic anemia, in the ED work-up shows hemoglobin 6.8/23.3 with MCV of 58 Active issues: Severe microcytic anemia : Most likely due to acute hemorrhage during surgical process and poor absorption of iron, transfuse 1 unit packed, follow-up LDH, reticulocyte count, serum ferritin, iron panel, B12, thiamine, consider IV iron before DC home. Morbid obesity: Status post gastric sleeve surgery 2013 and gastric bypass surgery 2015, follow-up with bariatric surgeon/metabolic clinic for weight reduction. Hypertension: Add amlodipine 5 mg daily Elevated random plasma glucose: At workplace random: 160 follow-up hemoglobin A1c stable diabetic diet. Menorrhagia: Follow-up with [facility] as an outpatient
[2020-07-05] MEDS ORDERED: amLODIPine BESYLATE 5 MG TABLET (FP) ONE (11:37)
[2020-07-05] MEDS ORDERED: IRON SUCROSE INJECTION 300 MG in SODIUM CHLORIDE 250 ML IVPB ONE (11:42)
[2020-07-05] MEDS: amLODIPine BESYLATE 5 MG TABLET (FP) PO SCH (11:42)
[2020-07-05 16:24] VITALS: BMI 36.8
--- NOTE | 2020-07-05 17:48 | EKG ---
Test Reason : Blood Pressure : / mmHG Vent. Rate : 077 BPM Atrial Rate : 077 BPM P-R Int : 124 ms QRS Dur : 080 ms QT Int : 380 ms P-R-T Axes : 035 001 002 degrees QTc Int : 430 ms NORMAL SINUS RHYTHM MINIMAL VOLTAGE CRITERIA FOR LVH, MAY BE NORMAL VARIANT BORDERLINE ECG WHEN COMPARED WITH ECG OF 20-MAR-2004 00:29, T WAVE VARIATION Confirmed by LEONOR FERRO MD ([id number]) on 07/05/2020 5:48:40 PM Referred By: Confirmed By:LEONOR FERRO MD
[2020-07-05] MEDS ORDERED: METOPROLOL TARTRATE 25 MG TABLET (FP) PO ONE (18:45)
[2020-07-05] MEDS ORDERED: ACETAMINOPHEN 325 MG TABLET (FP) PO ONE (19:43)
[2020-07-05 22:16] LABS: IRON SERUM 487 ug/dL (50-175); TOTAL IRON BINDING CAPACITY 513 ug/dL (250-450)
[2020-07-06 07:26] LABS: HEMATOCRIT 23.9 % (32.4-45.2); HEMOGLOBIN 7.6 GM/dL (10.7-15.3); MCHC 31.6 g/dl (32.0-36.0); MEAN CELL VOLUME 61.4 fl (80-96); MEAN PLT VOLUME 8.7 fl (7.5-11.1); PLATELET COUNT 274 K/MM3 (134-434); RBC 3.89 M/mm3 (3.60-5.2); RDW 31.5 % (11.6-15.6); WHITE BLOOD COUNT 7.5 K/mm3 (4.0-10.0)
[2020-07-06 07:34] LABS: INR 1.11 (0.83-1.09); PROTHROMBIN TIME (PATIENT) 13.1 SEC (9.7-13.0)
[2020-07-06 07:37] LABS: ACTIVATED PTT 29.2 SECONDS (25.2-36.5)
[2020-07-06 07:58] LABS: ALBUMIN 3.5 g/dl (3.4-5.0); BLOOD UREA NITROGEN 6.9 mg/dL (7-18); CALCIUM 8.8 mg/dL (8.5-10.1); CREATININE 0.7 mg/dL (0.55-1.3); MAGNESIUM 1.8 mg/dL (1.8-2.4); PHOSPHOROUS 3.7 mg/dL (2.5-4.9); POTASSIUM 3.6 mmol/L (3.5-5.1); TOT PROT 7.4 g/dl (6.4-8.2)
[2020-07-06 08:27] LABS: MCH 19.4 pg (25.7-33.7)
[2020-07-06 08:29] LABS: ADD RBC MORPHOLOGY YES
[2020-07-06] MEDS: amLODIPine BESYLATE 5 MG TABLET (FP) PO SCH (09:16)
[2020-07-06 11:15] LABS: ANISOCYTOSIS 3+; MACROCYTOSIS 0; PLATELET ESTIMATE NORMAL; TEAR DROP CELLS 1+
--- NOTE | 2020-07-06 16:01 | PN ---
Physical Exam: SUBJECTIVE: Patient seen and examined. Improved light headedness and weakness. OBJECTIVE: Vital Signs Period Temp Pulse Resp BP Sys/Cash Pulse Ox Last 24 Hr 9.2 F-98.9 F 67-89 16-20 128-152/72-103 99-100 GENERAL: The patient is awake, alert, and fully oriented, in no acute distress. Light headed and weakness. HEAD: Normal with no signs of trauma. EYES: PERRL, extraocular movements intact, sclera anicteric, conjunctiva clear. No ptosis. ENT: Ears normal, nares patent, oropharynx clear without exudates, moist mucous membranes. NECK: Trachea midline, full range of motion, supple. LUNGS: Breath sounds equal, clear to auscultation bilaterally, no wheezes, no crackles, no accessory muscle use. HEART: Regular rate and rhythm, S1, S2 without murmur, rub or gallop. No palpitations currently. ABDOMEN: Soft, nontender, nondistended, normoactive bowel sounds, no guarding, no rebound, no hepatosplenomegaly, no masses. EXTREMITIES: 2+ pulses, warm, well-perfused, no edema. NEUROLOGICAL: Cranial nerves II through XII grossly intact. Normal speech, gait not observed. PSYCH: Normal mood, normal affect. SKIN: Warm, dry, normal turgor, no rashes or lesions noted Laboratory Results - last 24 hr 07/05/20 07/05/20 07/05/20 11:30 21:40 21:40 WBC RBC Hgb Hct MCV MCH MCHC RDW Plt Count MPV Absolute Neuts (auto) Neutrophils % Neutrophils % (Manual) Band Neutrophils % Lymphocytes % Lymphocytes % (Manual) Monocytes % Monocytes % (Manual) Eosinophils % Eosinophils % (Manual) Basophils % Basophils % (Manual) Myelocytes % (Man) Promyelocytes % (Man) Blast Cells % (Manual) Nucleated RBC % Metamyelocytes Hypochromia Platelet Estimate Polychromasia Poikilocytosis Anisocytosis Microcytosis Macrocytosis Tear Drop Cells Retic Count PT with INR INR PTT (Actin FS) Sodium Potassium Chloride Carbon Dioxide Anion Gap BUN Creatinine Est GFR (CKD-EPI)AfAm Est GFR (CKD-EPI)NonAf Random Glucose Calcium Phosphorus Magnesium Iron 487 H TIBC 513 H Iron Saturation 94 H Unsaturated IBC 26 L Ferritin 14.3 Total Bilirubin AST ALT Alkaline Phosphatase LD Total 157 Total Protein Albumin TSH 0.65 Stool Occult Blood COVID-19 ([facility]) Not detected 07/05/20 07/06/20 07/06/20 21:40 06:25 06:25 WBC 7.5 RBC 3.89 Hgb 7.6 L Hct 23.9 L MCV 61.4 L D MCH 19.4 L D MCHC 31.6 L RDW 31.5 H Plt Count 274 D MPV 8.7 Absolute Neuts (auto) Sewing Machinist Neutrophils % Sewing Machinist Neutrophils % (Manual) 69.0 Band Neutrophils % 0.0 Lymphocytes % Sewing Machinist Lymphocytes % (Manual) 23.0 Monocytes % Sewing Machinist Monocytes % (Manual) 6 Eosinophils % Sewing Machinist Eosinophils % (Manual) 0.0 Basophils % Sewing Machinist Basophils % (Manual) 2.0 Myelocytes % (Man) 0 Promyelocytes % (Man) 0 Blast Cells % (Manual) 0 Nucleated RBC % 0 Metamyelocytes 0 Hypochromia 3+ Platelet Estimate Normal Polychromasia 2+ Poikilocytosis 1+ Anisocytosis 3+ Microcytosis 3+ Macrocytosis 0 Tear Drop Cells 1+ Retic Count 1.46 PT with INR 13.10 H INR 1.11 H PTT (Actin FS) 29.2 Sodium Potassium Chloride Carbon Dioxide Anion Gap BUN Creatinine Est GFR (CKD-EPI)AfAm Est GFR (CKD-EPI)NonAf Random Glucose Calcium Phosphorus Magnesium Iron TIBC Iron Saturation Unsaturated IBC Ferritin Total Bilirubin AST ALT Alkaline Phosphatase LD Total Total Protein Albumin TSH Stool Occult Blood COVID-19 ([facility]) 07/06/20 07/06/20 06:25 14:00 WBC RBC Hgb Hct MCV MCH MCHC RDW Plt Count MPV Absolute Neuts (auto) Neutrophils % Neutrophils % (Manual) Band Neutrophils % Lymphocytes % Lymphocytes % (Manual) Monocytes % Monocytes % (Manual) Eosinophils % Eosinophils % (Manual) Basophils % Basophils % (Manual) Myelocytes % (Man) Promyelocytes % (Man) Blast Cells % (Manual) Nucleated RBC % Metamyelocytes Hypochromia Platelet Estimate Polychromasia Poikilocytosis Anisocytosis Microcytosis Macrocytosis Tear Drop Cells Retic Count PT with INR INR PTT (Actin FS) Sodium 136 Potassium 3.6 Chloride 104 Carbon Dioxide 25 Anion Gap 7 L BUN 6.9 L Creatinine 0.7 Est GFR (CKD-EPI)AfAm 127.39 Est GFR (CKD-EPI)NonAf 109.91 Random Glucose 84 Calcium 8.8 Phosphorus 3.7 Magnesium 1.8 Iron TIBC Iron Saturation Unsaturated IBC Ferritin Total Bilirubin 1.0 AST 16 ALT 20 Alkaline Phosphatase 77 LD Total Total Protein 7.4 Albumin 3.5 TSH Stool Occult Blood Negative COVID-19 ([facility]) Active Medications Generic Name Dose Route Start Last Admin Trade Name Freq PRN Reason Stop Dose Admin Amlodipine Besylate 5 mg 07/05/20 11:30 07/06/20 09:16 Norvasc - PO 5 mg DAILY LYNNE Administration ASSESSMENT/PLAN: Pt is a 40 year old female with PMHx of anemia, HTN not currently on any meds, s/p gastric sleeve complicated with 4u of blood required, MVP, and asthma presenting to ED with light headedness and weakness admitted for anemia with Hgb 6.8. Pt reports heavy menstrual bleeding monthly, but LNMP was 2 weeks prior. #Generalized weakness 2/2 to anemia -H/H 6.8/23.3 ; recieved 1u pRBC improved to 7.6/23.9 -FOBT negative -F/u CBC in AM, consider GI and/or hem/onc consult if still low -Retic count ordered for AM #HTN -Not on any medications -181/93 on admission -started on Norvasc 5mg daily for HTN management -Improved to 134/76 #Hx of asthma -continue Albuterol PRN FEN: -no standing fluids -Monitor electrolytes -Sodium controlled diet DVT ppx SCD Hold chemical prophylaxis due to anemia Dispo Admitted to med-surg. S/p 1u pRBC hgb from 6.8 --> 7.6. FOBT negative. Visit type - Emergency Visit Emergency Visit: Yes ED Registration Date: 07/05/20 Care time: The patient presented to the Emergency Department on the above date and was hospitalized for further evaluation of their emergent condition. - New Patient This patient is new to me today: No - Critical Care Critical Care patient: No ATTENDING PHYSICIAN STATEMENT I saw and evaluated the patient. I reviewed the resident's note and discussed the case with the resident. I agree with the resident's findings and plan as documented. SUBJECTIVE: OBJECTIVE: ASSESSMENT AND PLAN:
--- NOTE | 2020-07-06 17:35 | PN ---
Teaching Attending Note Name of Resident: Silver Armando ATTENDING PHYSICIAN STATEMENT I saw and evaluated the patient. I reviewed the resident's note and discussed the case with the resident. I agree with the resident's findings and plan as documented. SUBJECTIVE: pt seen and examined OBJECTIVE: Last Vital Signs Temp Pulse Resp BP Pulse Ox 98.3 F 89 20 134/76 100 07/06/20 14:20 07/06/20 14:20 07/06/20 14:20 07/06/20 14:20 07/06/20 14:20 GENERAL: Awake, alert, and fully oriented, in no acute distress. HEAD: Normal with no signs of trauma. EYES: Pupils equal, round and reactive to light, sclera anicteric, conjunctiva clear. LUNGS: Breath sounds equal, clear to auscultation bilaterally. No wheezes, and no crackles. No accessory muscle use. HEART: Regular rate and rhythm, normal S1 and S2 ABDOMEN: Soft, nontender, not distended MUSCULOSKELETAL: Normal range of motion at all joints. No bony deformities or tenderness. No CVA tenderness. UPPER EXTREMITIES: 2+ pulses, warm, well-perfused. No cyanosis. No clubbing. No peripheral edema. LOWER EXTREMITIES: 2+ pulses, warm, well-perfused. No calf tenderness. No peripheral edema. NEUROLOGICAL: Cranial nerves II-XII intact. Normal speech. CBCD WBC 7.5 K/mm3 (4.0-10.0) 07/06/20 06:25 RBC 3.89 M/mm3 (3.60-5.2) 07/06/20 06:25 Hgb 7.6 GM/dL (10.7-15.3) L 07/06/20 06:25 Hct 23.9 % (32.4-45.2) L 07/06/20 06:25 MCV 61.4 fl (80-96) L D 07/06/20 06:25 MCHC 31.6 g/dl (32.0-36.0) L 07/06/20 06:25 RDW 31.5 % (11.6-15.6) H 07/06/20 06:25 Plt Count 274 K/MM3 (134-434) D 07/06/20 06:25 MPV 8.7 fl (7.5-11.1) 09/01/20 06:25 CMP Sodium 136 mmol/L (136-145) 07/06/20 06:25 Potassium 3.6 mmol/L (3.5-5.1) 07/06/20 06:25 Chloride 104 mmol/L (98-107) 07/06/20 06:25 Carbon Dioxide 25 mmol/L (21-32) 07/06/20 06:25 Anion Gap 7 MMOL/L (8-16) L 07/06/20 06:25 BUN 6.9 mg/dL (7-18) L 07/06/20 06:25 Creatinine 0.7 mg/dL (0.55-1.3) 07/06/20 06:25 Calcium 8.8 mg/dL (8.5-10.1) 07/06/20 06:25 Total Bilirubin 1.0 mg/dL (0.2-1) 07/06/20 06:25 AST 16 U/L (15-37) 07/06/20 06:25 ALT 20 U/L (13-61) 07/06/20 06:25 Alkaline Phosphatase 77 U/L (45-117) 07/06/20 06:25 Total Protein 7.4 g/dl (6.4-8.2) 07/06/20 06:25 Albumin 3.5 g/dl (3.4-5.0) 07/06/20 06:25 Active Medications Amlodipine Besylate (Norvasc -) 5 mg PO DAILY LYNNE Last Admin: 07/06/20 09:16 Dose: 5 mg Documented by: ASSESSMENT AND PLAN: Pt is a 40 year old female with PMHx of anemia, HTN not currently on any meds, s/p gastric sleeve complicated with 4u of blood required, MVP, and asthma presenting to ED with light headedness and weakness admitted for anemia with Hgb 6.8. Pt reports heavy menstrual bleeding monthly, but LNMP was 2 weeks prior. # Acute Anemia causes: blood loss? GI? Aplastic?infection? responded appropriately to transfusion h/o heavy menses, LMP was on 06/20 trend H&H FOBT negative check Retic count, peripheral smear, LDH, haptoglobin Iron studies post transfusion may consider GI or hem/onc based on clinical picture and labs HTN Asthma DVT proph
[2020-07-07 07:37] LABS: HEMATOCRIT 24.4 % (32.4-45.2); HEMOGLOBIN 7.4 GM/dL (10.7-15.3); MCHC 30.5 g/dl (32.0-36.0); MEAN CELL VOLUME 60.9 fl (80-96); MEAN PLT VOLUME 8.5 fl (7.5-11.1); PLATELET COUNT 257 K/MM3 (134-434); RBC 4.01 M/mm3 (3.60-5.2); WHITE BLOOD COUNT 6.9 K/mm3 (4.0-10.0)
[2020-07-07 08:07] LABS: ALBUMIN 3.4 g/dl (3.4-5.0); BILIRUBIN,TOTAL 0.6 mg/dL (0.2-1); BLOOD UREA NITROGEN 8.4 mg/dL (7-18); CALCIUM 8.6 mg/dL (8.5-10.1); CREATININE 0.7 mg/dL (0.55-1.3); PHOSPHOROUS 4.2 mg/dL (2.5-4.9); POTASSIUM 3.4 mmol/L (3.5-5.1); TOT PROT 7.2 g/dl (6.4-8.2)
[2020-07-07 08:27] LABS: MCH 18.6 pg (25.7-33.7)
[2020-07-07 08:38] LABS: RETICULOCYTES 3.56 % (0.5-1.5)
[2020-07-07] MEDS ORDERED: POTASSIUM CHLORIDE TABS 20 MEQ TABLET.ER (FP) PO ONE (09:15)
[2020-07-07 10:07] LABS: ANISOCYTOSIS 3+; MACROCYTOSIS 0; PLATELET ESTIMATE NORMAL; TARGET CELLS 2+; TEAR DROP CELLS 1+
[2020-07-07] MEDS: amLODIPine BESYLATE 5 MG TABLET (FP) PO SCH (10:28)
--- NOTE | 2020-07-07 13:16 | PN ---
Progress Note (short form) - Note Progress Note: GI CONSULT DICTATED ENGINEER SYSTEMS EVALUATION SERIAL H/H - TRANSFUSE PER PRIMARY MEDICAL TEAM NO PLAN FOR INPT EGD/ COLONOSCOPY
--- NOTE | 2020-07-07 13:27 | PN ---
Physical Exam: SUBJECTIVE: Patient seen and examined. Denies CP,SOB, fever, chills. Light headedness and dizziness when walking. OBJECTIVE: Vital Signs Period Temp Pulse Resp BP Sys/Cash Pulse Ox Last 24 Hr 98 F-98.7 F 74-95 16-20 130-156/74-100 98-100 GENERAL: The patient is awake, alert, and fully oriented, in no acute distress. Light headed and weakness. HEAD: Normal with no signs of trauma. EYES: PERRL, extraocular movements intact, sclera anicteric, conjunctiva clear. No ptosis. ENT: Ears normal, nares patent, oropharynx clear without exudates, moist mucous membranes. NECK: Trachea midline, full range of motion, supple. LUNGS: Breath sounds equal, clear to auscultation bilaterally, no wheezes, no crackles, no accessory muscle use. HEART: Regular rate and rhythm, S1, S2 without murmur, rub or gallop. No palpitations currently. ABDOMEN: Soft, nontender, nondistended, normoactive bowel sounds, no guarding, no rebound, no hepatosplenomegaly, no masses. EXTREMITIES: 2+ pulses, warm, well-perfused, no edema. NEUROLOGICAL: Cranial nerves II through XII grossly intact. Normal speech, gait not observed. PSYCH: Normal mood, normal affect. SKIN: Warm, dry, normal turgor, no rashes or lesions noted Laboratory Results - last 24 hr 07/06/20 07/07/20 07/07/20 14:00 07:07 07:07 WBC 6.9 RBC 4.01 Hgb 7.4 L Hct 24.4 L MCV 60.9 L MCH 18.6 L MCHC 30.5 L RDW 33.0 H Plt Count 257 MPV 8.5 Neutrophils % No Result Required. Neutrophils % (Manual) 57.6 Band Neutrophils % 3.0 Lymphocytes % No Result Required. Lymphocytes % (Manual) 32.3 D Monocytes % (Manual) 6 Eosinophils % (Manual) 1.0 D Basophils % (Manual) 0.0 Myelocytes % (Man) 0 Promyelocytes % (Man) 0 Blast Cells % (Manual) 0 Nucleated RBC % 1 H Metamyelocytes 0 Hypochromia 2+ Platelet Estimate Normal Polychromasia 1+ Poikilocytosis 2+ Anisocytosis 3+ Microcytosis 3+ Macrocytosis 0 Target Cells 2+ Tear Drop Cells 1+ Retic Count 3.56 H D Sodium 137 Potassium 3.4 L Chloride 104 Carbon Dioxide 25 Anion Gap 8 BUN 8.4 Creatinine 0.7 Est GFR (CKD-EPI)AfAm 127.39 Est GFR (CKD-EPI)NonAf 109.91 Random Glucose 89 Calcium 8.6 Phosphorus 4.2 Magnesium 2.0 Total Bilirubin 0.6 AST 18 ALT 20 Alkaline Phosphatase 73 Total Protein 7.2 Albumin 3.4 Stool Occult Blood Negative Active Medications Generic Name Dose Route Start Last Admin Trade Name Freq PRN Reason Stop Dose Admin Amlodipine Besylate 5 mg 07/05/20 11:30 07/07/20 10:28 Norvasc - PO 5 mg DAILY LYNNE Administration Nitrofurantoin Macrocrystals 50 mg 07/07/20 12:00 Macrodantin - PO Q6HPO LYNNE ASSESSMENT/PLAN: Pt is a 40 year old female with PMHx of anemia, HTN not currently on any meds, s/p gastric sleeve complicated with 4u of blood required, MVP, and asthma presenting to ED with light headedness and weakness admitted for anemia with Hgb 6.8. Pt reports heavy menstrual bleeding monthly, but LNMP was 2 weeks prior. #Generalized weakness 2/2 to anemia -H/H 6.8/23.3 ; recieved 1u pRBC improved to 7.6/23.9 -7.4/34.4 this AM -Retic count 3.56 -FOBT negative -GI consult; no plan for inpt EGD/colonoscopy; will f/u outpt -Hem/onc consulted; will f/u recs #HTN -Not on any medications at home - on admission -started on Norvasc 5mg daily for HTN management #Hx of asthma -continue Albuterol PRN FEN: -no standing fluids -Monitor electrolytes -Sodium controlled diet DVT ppx SCD Hold chemical prophylaxis due to anemia Dispo Admitted to med-surg. S/p 1u pRBC hgb from 6.8 --> 7.6. FOBT negative. Visit type - Emergency Visit Emergency Visit: Yes ED Registration Date: 07/05/20 Care time: The patient presented to the Emergency Department on the above date and was hospitalized for further evaluation of their emergent condition. - New Patient This patient is new to me today: No - Critical Care Critical Care patient: No ATTENDING PHYSICIAN STATEMENT I saw and evaluated the patient. I reviewed the resident's note and discussed the case with the resident. I agree with the resident's findings and plan as documented. SUBJECTIVE: OBJECTIVE: ASSESSMENT AND PLAN:
--- NOTE | 2020-07-07 14:00 | CONS ---
DATE OF CONSULTATION: DATE OF DICTATION: 07/07/2020 HISTORY OF PRESENT ILLNESS: The patient is a 40-year-old female with a past medical history of chronic anemia, heavy menses, hypertension, gastric sleeve and gastric bypass 2011 and 2013, mitral valve prolapse who presented to the emergency room with complaints of generalized weakness and lightheadedness. She states that she has had heavy period prior to this occurring. She denies any abdominal, nausea, vomiting, hematemesis, melena, or hematochezia. She has not had a colonoscopy but she did have an endoscopy which was significant for hiatal hernia around the time of her gastric surgeries. This hiatal hernia was repaired at the time. PAST MEDICAL HISTORY/PAST SURGICAL HISTORY: As listed in the HPI. ALLERGIES: No known drug allergies. SOCIAL HISTORY: Does not drink, smoke, or use drugs. FAMILY HISTORY: Diabetes and hypertension. No history of GI or gynecological malignancy. REVIEW OF SYSTEMS: As per the HPI. MEDICATIONS: Denies. PHYSICAL EXAMINATION: Vital Signs: Temperature 98, pulse 92, blood pressure 130/74, pulse oximetry 98% on room air, respiratory rate 18. General: No acute distress. HEENT: Anicteric sclera. Cardiovascular: S1, S2. Regular, rate, and rhythm. Lungs: Bilaterally clear to auscultation. Abdomen: Soft and nontender. Extremities: No edema. LABORATORY DATA: White blood cell count 6.9, hemoglobin 7, hematocrit 24, MCV 60, platelet count 257. INR 1. Sodium 137, potassium 3.4, BUN 8.4, creatinine 0.7, glucose 89, iron 487, total bilirubin 0.6, AST 18, ALT 20, alkaline phosphatase 73. Stool for occult blood is negative. Serology for COVID-19 is negative. IMPRESSION: Microcytic anemia most likely secondary to menorrhagia. No sign of gastrointestinal blood loss. RECOMMENDATION: Transfuse as per primary medical team, iron supplement, and gynecology evaluation. Monitor h/h daily while hospitalized. She can be followed up as an outpatient with GI if she were to develop any symptoms from a GI standpoint. DO CORONA LORENZO/[id number] MTDD
--- NOTE | 2020-07-07 14:09 | CONSULT ---
Consultation: Heme-Onc Resident note REQUESTING PROVIDER: Dr. Christensen CONSULT REQUEST: We have been asked to medically evaluate this patient for anemia. HISTORY OF PRESENT ILLNESS: Patient is a 40 year old female with past medical history of anemia, menorrhagia, HTN, s/p gastric sleeve (>5 years ago), presented to the ED due to dizziness and weakness. At the ED, patient was found to be anemic with Hgb of 6.8. Patient was admitted and received 1u prbc. Patient reported she has history of heavy menstrual bleeding since menarche, consuming >10ppd, lasting 5 days. She has seen [facility] in the past, where she was told that everything was normal. Previous transvaginal ultrasound also reported thickened endometrium. LMP Jun 20-. Patient also had taken iron pills in the past, but since the gastric sleeve, has had difficulty tolerating the pills. Today, patient reports feeling better, denies any vaginal or rectal bleeding. Denies fevers, chills, headache, dizziness, chest pain, SOB, abdominal pain, diarrhea, urinary symptoms. PMHx: anemia, HTN PSHx: gastric sleeve Allergies: NKDA SHx: denies smoking, drinking, illicit drug use FHx: sister - menometrorrhagia (was placed on OCPs), anemia, no hx of cancer or blood disorders REVIEW OF SYSTEMS: CONSTITUTIONAL: Absent: fever, chills, diaphoresis, generalized weakness, malaise, loss of appetite, weight change HEENT: Absent: rhinorrhea, nasal congestion, throat pain, throat swelling, difficulty swallowing, mouth swelling, ear pain, eye pain, visual changes CARDIOVASCULAR: Absent: chest pain, syncope, palpitations, irregular heart rate, lightheadedness, peripheral edema RESPIRATORY: Absent: cough, shortness of breath, dyspnea with exertion, orthopnea, wheezing, stridor, hemoptysis GASTROINTESTINAL: Absent: abdominal pain, abdominal distension, nausea, vomiting, diarrhea, constipation, melena, hematochezia GENITOURINARY: Absent: dysuria, frequency, urgency, hesitancy, hematuria, flank pain, genital pain MUSCULOSKELETAL: Absent: myalgia, arthralgia, joint swelling, back pain, neck pain SKIN: Absent: rash, itching, pallor HEMATOLOGIC/IMMUNOLOGIC: Absent: easy bleeding, easy bruising, lymphadenopathy, frequent infections ENDOCRINE: Absent: unexplained weight gain, unexplained weight loss, heat intolerance, cold intolerance NEUROLOGIC: Absent: headache, focal weakness or paresthesias, dizziness, unsteady gait, seizure, mental status changes, bladder or bowel incontinence PSYCHIATRIC: Absent: anxiety, depression, suicidal or homicidal ideation, hallucinations. PHYSICAL EXAMINATION Vital Signs - 24 hr 07/06/20 07/06/20 07/06/20 14:20 16:45 21:00 Temperature 98.3 F 98.5 F Pulse Rate 89 81 Respiratory 20 18 16 Rate Blood Pressure 134/76 156/93 O2 Sat by Pulse 100 100 98 Oximetry (%) 07/06/20 07/07/20 07/07/20 22:00 01:39 05:45 Temperature 98.7 F 98.5 F 98.5 F Pulse Rate 85 95 H 74 Respiratory 18 18 18 Rate Blood Pressure 146/90 135/100 136/80 O2 Sat by Pulse 98 100 100 Oximetry (%) 07/07/20 07/07/20 07/07/20 08:46 08:51 13:37 Temperature 98 F 97.9 F Pulse Rate 92 H 91 H Respiratory 18 20 Rate Blood Pressure 130/74 142/78 O2 Sat by Pulse 98 98 99 Oximetry (%) GENERAL: Awake, alert, and fully oriented, in no acute distress. HEAD: Normal with no signs of trauma. EYES: PERRLA, EOMI, sclera anicteric, conjunctiva clear. EARS, NOSE, THROAT: Moist mucous membranes. NECK: Normal range of motion, supple LUNGS: Breath sounds equal, clear to auscultation bilaterally. HEART: Regular rate and rhythm, normal S1 and S2 BREAST: symmetrical, no skin changes, no discharge, no masses, no axillary lad ABDOMEN: Soft, nontender, not distended, normoactive bowel sounds LOWER EXTREMITIES: 2+ pulses, warm, well-perfused. No peripheral edema. NEUROLOGICAL: Cranial nerves II-XII intact. Normal speech. PSYCHIATRIC: Cooperative. Good eye contact. Appropriate mood and affect. SKIN: Warm, dry, normal turgor Laboratory Results - last 24 hr 07/06/20 07/07/20 07/07/20 14:00 07:07 07:07 WBC 6.9 RBC 4.01 Hgb 7.4 L Hct 24.4 L MCV 60.9 L MCH 18.6 L MCHC 30.5 L RDW 33.0 H Plt Count 257 MPV 8.5 Neutrophils % No Result Required. Neutrophils % (Manual) 57.6 Band Neutrophils % 3.0 Lymphocytes % No Result Required. Lymphocytes % (Manual) 32.3 D Monocytes % (Manual) 6 Eosinophils % (Manual) 1.0 D Basophils % (Manual) 0.0 Myelocytes % (Man) 0 Promyelocytes % (Man) 0 Blast Cells % (Manual) 0 Nucleated RBC % 1 H Metamyelocytes 0 Hypochromia 2+ Platelet Estimate Normal Polychromasia 1+ Poikilocytosis 2+ Anisocytosis 3+ Microcytosis 3+ Macrocytosis 0 Target Cells 2+ Tear Drop Cells 1+ Retic Count 3.56 H D Sodium 137 Potassium 3.4 L Chloride 104 Carbon Dioxide 25 Anion Gap 8 BUN 8.4 Creatinine 0.7 Est GFR (CKD-EPI)AfAm 127.39 Est GFR (CKD-EPI)NonAf 109.91 Random Glucose 89 Calcium 8.6 Phosphorus 4.2 Magnesium 2.0 Total Bilirubin 0.6 AST 18 ALT 20 Alkaline Phosphatase 73 Total Protein 7.2 Albumin 3.4 Stool Occult Blood Negative Active Medications Generic Name Dose Route Start Last Admin Trade Name Freq PRN Reason Stop Dose Admin Amlodipine Besylate 5 mg 07/05/20 11:30 07/07/20 10:28 Norvasc - PO 5 mg DAILY LYNNE Administration Nitrofurantoin Macrocrystals 50 mg 07/07/20 12:00 Macrodantin - PO Q6HPO [facility] ASSESSMENT/PLAN: Patient is a 40 year old female with past medical history of anemia, menorrhagia, HTN, s/p gastric sleeve (>5 years ago), presented to the ED due to dizziness and weakness. We have been asked to medically evaluate this patient for anemia. #Microcytic anemia -likely iron deficiency anemia 2/2 menorrhagia, gastric sleeve (decreased iron absorption) -iron studies noted, although done after receiving 1u prbc -Hgb 6.8, MCV 56.5 on admission -retic count elevated - appropriate response -LDH normal -will benefit from IV venofer 200mg q48h x5 doses -hgb electrophoresis, haptoglobin pending -gi consult appreciated -monitor cbc, transfuse prn to keep hgb >7 -would need follow up with [facility] outpatient Dispo: We will continue to follow the patient. Thank you for this consultative opportunity. Visit type - Emergency Visit Emergency Visit: Yes ED Registration Date: 07/05/20 Care time: The patient presented to the Emergency Department on the above date and was hospitalized for further evaluation of their emergent condition. - New Patient This patient is new to me today: Yes Date on this admission: 07/07/20 - Critical Care Critical Care patient: No ATTENDING PHYSICIAN STATEMENT I saw and evaluated the patient. I reviewed the resident's note and discussed the case with the resident. I agree with the resident's findings and plan as documented. SUBJECTIVE: OBJECTIVE: ASSESSMENT AND PLAN:
[2020-07-07] MEDS ORDERED: IRON SUCROSE INJECTION 200 MG in SODIUM CHLORIDE 90 ML IVPB ONE (14:30)
[2020-07-07] MEDS: NITROFURANTOIN MACROCRYSTAL 50 MG CAPSULE (FP) PO SCH ×2 (15:34→17:04)
--- NOTE | 2020-07-07 17:53 | PN ---
Teaching Attending Note Name of Resident: Silver Armando ATTENDING PHYSICIAN STATEMENT I saw and evaluated the patient. I reviewed the resident's note and discussed the case with the resident. I agree with the resident's findings and plan as documented. SUBJECTIVE: pt seen and examined OBJECTIVE: Last Vital Signs Temp Pulse Resp BP Pulse Ox 98.8 F 86 18 134/83 99 07/07/20 15:00 07/07/20 15:00 07/07/20 15:00 07/07/20 15:00 07/07/20 15:00 GENERAL: Awake, alert, and fully oriented, in no acute distress. HEAD: Normal with no signs of trauma. EYES: Pupils equal, round and reactive to light, sclera anicteric, conjunctiva clear. LUNGS: Breath sounds equal, clear to auscultation bilaterally. No wheezes, and no crackles. No accessory muscle use. HEART: Regular rate and rhythm, normal S1 and S2 ABDOMEN: Soft, nontender, not distended MUSCULOSKELETAL: Normal range of motion at all joints. No bony deformities or tenderness. No CVA tenderness. UPPER EXTREMITIES: 2+ pulses, warm, well-perfused. No cyanosis. No clubbing. No peripheral edema. LOWER EXTREMITIES: 2+ pulses, warm, well-perfused. No calf tenderness. No peripheral edema. NEUROLOGICAL: Cranial nerves II-XII intact. Normal speech. CBCD WBC 6.9 K/mm3 (4.0-10.0) 07/07/20 07:07 RBC 4.01 M/mm3 (3.60-5.2) 07/07/20 07:07 Hgb 7.4 GM/dL (10.7-15.3) L 07/07/20 07:07 Hct 24.4 % (32.4-45.2) L 07/07/20 07:07 MCV 60.9 fl (80-96) L 07/07/20 07:07 MCHC 30.5 g/dl (32.0-36.0) L 07/07/20 07:07 RDW 33.0 % (11.6-15.6) H 07/07/20 07:07 Plt Count 257 K/MM3 (134-434) 07/07/20 07:07 MPV 8.5 fl (7.5-11.1) 07/07/20 07:07 CMP Sodium 137 mmol/L (136-145) 07/07/20 07:07 Potassium 3.4 mmol/L (3.5-5.1) L 07/07/20 07:07 Chloride 104 mmol/L (98-107) 07/07/20 07:07 Carbon Dioxide 25 mmol/L (21-32) 07/07/20 07:07 Anion Gap 8 MMOL/L (8-16) 07/07/20 07:07 BUN 8.4 mg/dL (7-18) 07/07/20 07:07 Creatinine 0.7 mg/dL (0.55-1.3) 07/07/20 07:07 Calcium 8.6 mg/dL (8.5-10.1) 07/07/20 07:07 Total Bilirubin 0.6 mg/dL (0.2-1) 07/07/20 07:07 AST 18 U/L (15-37) 07/07/20 07:07 ALT 20 U/L (13-61) 07/07/20 07:07 Alkaline Phosphatase 73 U/L (45-117) 07/07/20 07:07 Total Protein 7.2 g/dl (6.4-8.2) 07/07/20 07:07 Albumin 3.4 g/dl (3.4-5.0) 07/07/20 07:07 Active Medications Amlodipine Besylate (Norvasc -) 5 mg PO DAILY [facility] Last Admin: 07/07/20 10:28 Dose: 5 mg Documented by: Nitrofurantoin Macrocrystals (Macrodantin -) 50 mg PO Q6HPO [facility] Last Admin: 07/07/20 17:04 Dose: Not Given Documented by: ASSESSMENT AND PLAN: Pt is a 40 year old female with PMHx of anemia, HTN not currently on any meds, s/p gastric sleeve complicated with 4u of blood required, MVP, and asthma presenting to ED with light headedness and weakness admitted for anemia with Hgb 6.8. Pt reports heavy menstrual bleeding monthly, but LNMP was 2 weeks prior. # Acute Anemia appears to be due to severe iron def, Thalassemia? has family hx of memebers requiring transfusion for heavy menses h/o heavy menses, LMP was on 06/20 trend H&H, keep Hg>7 FOBT negative check Retic count, peripheral smear, LDH, haptoglobin Iron studies were post transfusion GI consult appreciated HemOnc consult appreciated HTN Asthma DVT proph
--- NOTE | 2020-07-07 22:53 | PN ---
Teaching Attending Note Name of Resident: Meche Hansen ATTENDING PHYSICIAN STATEMENT I saw and evaluated the patient. I reviewed the resident's note and discussed the case with the resident. I agree with the resident's findings and plan as documented. ASSESSMENT AND PLAN: Patient is a 40 year old female with past medical history of anemia, menorrhagia, HTN, s/p gastric sleeve (>5 years ago), presented to the ED due to dizziness and weakness. We have been asked to medically evaluate this patient for anemia. #Microcytic anemia -likely iron deficiency anemia 2/2 menorrhagia, gastric sleeve/bypass (decreased iron absorption) -iron studies noted, although done after receiving 1u prbc -Hgb 6.8, MCV 56.5 on admission -retic count elevated - appropriate response -LDH normal -will benefit from IV venofer 200mg q48h x5 doses or injectafer 750mg IVSS x2 doses a week apart -hgb electrophoresis, ---- microcytosis disproportionate to anemia needs outpatient gi/gyn physician follow up
[2020-07-08] MEDS: NITROFURANTOIN MACROCRYSTAL 50 MG CAPSULE (FP) PO SCH ×4 (01:09→17:59)
[2020-07-08 08:12] LABS: BLOOD UREA NITROGEN 8.3 mg/dL (7-18); CALCIUM 8.5 mg/dL (8.5-10.1); CREATININE 0.7 mg/dL (0.55-1.3); PHOSPHOROUS 4.2 mg/dL (2.5-4.9); POTASSIUM 3.5 mmol/L (3.5-5.1)
[2020-07-08 08:15] LABS: HEMATOCRIT 24.1 % (32.4-45.2); HEMOGLOBIN 7.4 GM/dL (10.7-15.3); MCHC 30.5 g/dl (32.0-36.0); MEAN CELL VOLUME 62.2 fl (80-96); MEAN PLT VOLUME 8.4 fl (7.5-11.1); PLATELET COUNT 241 K/MM3 (134-434); RBC 3.88 M/mm3 (3.60-5.2); RDW 32.1 % (11.6-15.6); WHITE BLOOD COUNT 6.9 K/mm3 (4.0-10.0)
[2020-07-08 08:27] LABS: MCH 18.9 pg (25.7-33.7)
[2020-07-08] MEDS ORDERED: PT OWN MED DRAWER 7, Y5N ONE ×3 (10:48→17:57)
[2020-07-08] MEDS: amLODIPine BESYLATE 5 MG TABLET (FP) PO SCH (11:24)
--- NOTE | 2020-07-08 12:16 | PN ---
Teaching Attending Note Name of Resident: Silver Armando ATTENDING PHYSICIAN STATEMENT I saw and evaluated the patient. I reviewed the resident's note and discussed the case with the resident. I agree with the resident's findings and plan as documented. SUBJECTIVE: pt seen and examined OBJECTIVE: Last Vital Signs Temp Pulse Resp BP Pulse Ox 98 F 70 18 135/89 100 07/08/20 09:00 07/08/20 09:00 07/08/20 09:00 07/08/20 09:00 07/08/20 09:00 GENERAL: Awake, alert, and fully oriented, in no acute distress. HEAD: Normal with no signs of trauma. EYES: Pupils equal, round and reactive to light, sclera anicteric, conjunctiva clear. LUNGS: Breath sounds equal, clear to auscultation bilaterally. No wheezes, and no crackles. No accessory muscle use. HEART: Regular rate and rhythm, normal S1 and S2 ABDOMEN: Soft, nontender, not distended MUSCULOSKELETAL: Normal range of motion at all joints. No bony deformities or tenderness. No CVA tenderness. UPPER EXTREMITIES: 2+ pulses, warm, well-perfused. No cyanosis. No clubbing. No peripheral edema. LOWER EXTREMITIES: 2+ pulses, warm, well-perfused. No calf tenderness. No peripheral edema. NEUROLOGICAL: Cranial nerves II-XII intact. Normal speech. CBCD WBC 6.9 K/mm3 (4.0-10.0) 07/08/20 06:55 RBC 3.88 M/mm3 (3.60-5.2) 07/08/20 06:55 Hgb 7.4 GM/dL (10.7-15.3) L 07/08/20 06:55 Hct 24.1 % (32.4-45.2) L 07/08/20 06:55 MCV 62.2 fl (80-96) L 07/08/20 06:55 MCHC 30.5 g/dl (32.0-36.0) L 07/08/20 06:55 RDW 32.1 % (11.6-15.6) H 07/08/20 06:55 Plt Count 241 K/MM3 (134-434) 07/08/20 06:55 MPV 8.4 fl (7.5-11.1) 07/08/20 06:55 CMP Sodium 137 mmol/L (136-145) 07/08/20 06:55 Potassium 3.5 mmol/L (3.5-5.1) 07/08/20 06:55 Chloride 104 mmol/L (98-107) 07/08/20 06:55 Carbon Dioxide 25 mmol/L (21-32) 07/08/20 06:55 Anion Gap 9 MMOL/L (8-16) 07/08/20 06:55 BUN 8.3 mg/dL (7-18) 07/08/20 06:55 Creatinine 0.7 mg/dL (0.55-1.3) 07/08/20 06:55 Calcium 8.5 mg/dL (8.5-10.1) 07/08/20 06:55 Total Bilirubin 0.6 mg/dL (0.2-1) 07/07/20 07:07 AST 18 U/L (15-37) 07/07/20 07:07 ALT 20 U/L (13-61) 07/07/20 07:07 Alkaline Phosphatase 73 U/L (45-117) 07/07/20 07:07 Total Protein 7.2 g/dl (6.4-8.2) 07/07/20 07:07 Albumin 3.4 g/dl (3.4-5.0) 07/07/20 07:07 Active Medications Amlodipine Besylate (Norvasc -) 5 mg PO DAILY [facility] Last Admin: 07/08/20 11:24 Dose: 5 mg Documented by: Nitrofurantoin Macrocrystals (Macrodantin -) 50 mg PO Q6HPO [facility] Last Admin: 07/08/20 05:53 Dose: 50 mg Documented by: ASSESSMENT AND PLAN: Pt is a 40 year old female with PMHx of anemia, HTN not currently on any meds, s/p gastric sleeve complicated with 4u of blood required, MVP, and asthma presenting to ED with light headedness and weakness admitted for anemia with Hgb 6.8. Pt reports heavy menstrual bleeding monthly, but LNMP was 2 weeks prior. # Acute Anemia appears to be due to severe iron def has family hx of memebers requiring transfusion for heavy menses h/o heavy menses, LMP was on 06/20 trend H&H, keep Hg>7 FOBT negative IV venofer q48h x5 doses GI consult appreciated HemOnc consult appreciated HTN Asthma DVT proph
--- NOTE | 2020-07-08 13:05 | PN ---
Physical Exam: SUBJECTIVE: Patient seen and examined. Denies CP,SOB, fever, chills, light headedness and dizziness. OBJECTIVE: Vital Signs Period Temp Pulse Resp BP Sys/Cash Pulse Ox Last 24 Hr 97.7 F-98.8 F 69-93 18-20 134-158/69-89 99-100 GENERAL: The patient is awake, alert, and fully oriented, in no acute distress. HEAD: Normal with no signs of trauma. EYES: PERRL, extraocular movements intact, sclera anicteric, conjunctiva clear. No ptosis. ENT: Ears normal, nares patent, oropharynx clear without exudates, moist mucous membranes. NECK: Trachea midline, full range of motion, supple. LUNGS: Breath sounds equal, clear to auscultation bilaterally, no wheezes, no crackles, no accessory muscle use. HEART: Regular rate and rhythm, S1, S2 without murmur, rub or gallop. ABDOMEN: Soft, nontender, nondistended, normoactive bowel sounds, no guarding, no rebound, no hepatosplenomegaly, no masses. EXTREMITIES: 2+ pulses, warm, well-perfused, no edema. NEUROLOGICAL: Cranial nerves II through XII grossly intact. Normal speech, gait not observed. PSYCH: Normal mood, normal affect. SKIN: Warm, dry, normal turgor, no rashes or lesions noted Laboratory Results - last 24 hr 07/07/20 07/08/20 07/08/20 07:07 06:55 06:55 WBC 6.9 RBC 3.88 Hgb 7.4 L Hct 24.1 L MCV 62.2 L MCH 18.9 L MCHC 30.5 L RDW 32.1 H Plt Count 241 MPV 8.4 Haptoglobin 58 Sodium 137 Potassium 3.5 Chloride 104 Carbon Dioxide 25 Anion Gap 9 BUN 8.3 Creatinine 0.7 Est GFR (CKD-EPI)AfAm 127.39 Est GFR (CKD-EPI)NonAf 109.91 Random Glucose 87 Calcium 8.5 Phosphorus 4.2 Magnesium 2.0 LD Total 132 Active Medications Generic Name Dose Route Start Last Admin Trade Name Freq PRN Reason Stop Dose Admin Amlodipine Besylate 5 mg 07/05/20 11:30 07/08/20 11:24 Norvasc - PO 5 mg DAILY [facility] Administration Nitrofurantoin Macrocrystals 50 mg 07/07/20 12:00 07/08/20 12:30 Macrodantin - PO 50 mg Q6HPO [facility] Administration ASSESSMENT/PLAN: Pt is a 40 year old female with PMHx of anemia, HTN not currently on any meds, s/p gastric sleeve complicated with 4u of blood required, MVP, and asthma presenting to ED with light headedness and weakness admitted for anemia with Hgb 6.8. Pt reports heavy menstrual bleeding monthly, but LNMP was 2 weeks prior. #Generalized weakness 2/2 to anemia -H/H 6.8/23.3 ; recieved 1u pRBC improved to 7.6/23.9 -7.4/24.1 this AM -Retic count 3.56; appropriate response -FOBT negative -GI consult; no plan for inpt EGD/colonoscopy; will f/u outpt -Hem/onc consulted; haptoglobin normal, Hgb electrophoresis pending, started on IV venofer q48h x 5 doses, transfuse <7 #HTN -started on Norvasc 5mg daily for HTN management #Hx of asthma -continue Albuterol PRN FEN: -no standing fluids -Monitor electrolytes -Sodium controlled diet DVT ppx SCD Hold chemical prophylaxis due to anemia Dispo Admitted to med-surg. S/p 1u pRBC hgb from 6.8 --> 7.6. Currently 7.4. Transfuse <7. FOBT negative. Visit type - Emergency Visit Emergency Visit: Yes ED Registration Date: 07/05/20 Care time: The patient presented to the Emergency Department on the above date and was hospitalized for further evaluation of their emergent condition. - New Patient This patient is new to me today: No - Critical Care Critical Care patient: No ATTENDING PHYSICIAN STATEMENT I saw and evaluated the patient. I reviewed the resident's note and discussed the case with the resident. I agree with the resident's findings and plan as documented. SUBJECTIVE: OBJECTIVE: ASSESSMENT AND PLAN:
[2020-07-09] MEDS: NITROFURANTOIN MACROCRYSTAL 50 MG CAPSULE (FP) PO SCH ×3 (00:40→13:41)
[2020-07-09 08:47] LABS: HEMATOCRIT 25.9 % (32.4-45.2); HEMOGLOBIN 7.9 GM/dL (10.7-15.3); MCHC 30.5 g/dl (32.0-36.0); MEAN PLT VOLUME 9.1 fl (7.5-11.1); PLATELET COUNT 219 K/MM3 (134-434); RDW 33.6 % (11.6-15.6); WHITE BLOOD COUNT 5.2 K/mm3 (4.0-10.0)
[2020-07-09 08:49] LABS: MCH 19.2 pg (25.7-33.7)
[2020-07-09 08:51] LABS: BLOOD UREA NITROGEN 9.3 mg/dL (7-18); CALCIUM 9.3 mg/dL (8.5-10.1); CREATININE 0.6 mg/dL (0.55-1.3); PHOSPHOROUS 4.4 mg/dL (2.5-4.9); POTASSIUM 3.6 mmol/L (3.5-5.1)
[2020-07-09] MEDS: amLODIPine BESYLATE 5 MG TABLET (FP) PO SCH (09:37)
[2020-07-09 10:27] VITALS: BP 135/86; PULSE 86; TEMP 98
[2020-07-09] MEDS ORDERED: IRON SUCROSE INJECTION 200 MG in SODIUM CHLORIDE 90 ML IVPB ONE (10:30)
--- NOTE | 2020-07-09 11:55 | PN ---
Teaching Attending Note Name of Resident: Silver Armando ATTENDING PHYSICIAN STATEMENT I saw and evaluated the patient. I reviewed the resident's note and discussed the case with the resident. I agree with the resident's findings and plan as documented. SUBJECTIVE: pt seen and examined OBJECTIVE: Last Vital Signs Temp Pulse Resp BP Pulse Ox 98 F 86 18 135/86 100 07/09/20 10:00 07/09/20 10:00 07/09/20 10:00 07/09/20 10:00 07/09/20 10:00 GENERAL: Awake, alert, and fully oriented, in no acute distress. HEAD: Normal with no signs of trauma. EYES: Pupils equal, round and reactive to light, sclera anicteric, conjunctiva clear. LUNGS: Breath sounds equal, clear to auscultation bilaterally. No wheezes, and no crackles. No accessory muscle use. HEART: Regular rate and rhythm, normal S1 and S2 ABDOMEN: Soft, nontender, not distended MUSCULOSKELETAL: Normal range of motion at all joints. No bony deformities or tenderness. No CVA tenderness. UPPER EXTREMITIES: 2+ pulses, warm, well-perfused. No cyanosis. No clubbing. No peripheral edema. LOWER EXTREMITIES: 2+ pulses, warm, well-perfused. No calf tenderness. No peripheral edema. NEUROLOGICAL: Cranial nerves II-XII intact. Normal speech. CBCD WBC 5.2 K/mm3 (4.0-10.0) 07/09/20 07:38 RBC 4.10 M/mm3 (3.60-5.2) 07/09/20 07:38 Hgb 7.9 GM/dL (10.7-15.3) L 07/09/20 07:38 Hct 25.9 % (32.4-45.2) L 07/09/20 07:38 MCV 63.0 fl (80-96) L 07/09/20 07:38 MCHC 30.5 g/dl (32.0-36.0) L 07/09/20 07:38 RDW 33.6 % (11.6-15.6) H 07/09/20 07:38 Plt Count 219 K/MM3 (134-434) 07/09/20 07:38 MPV 9.1 fl (7.5-11.1) 07/09/20 07:38 CMP Sodium 138 mmol/L (136-145) 07/09/20 07:38 Potassium 3.6 mmol/L (3.5-5.1) 07/09/20 07:38 Chloride 104 mmol/L (98-107) 07/09/20 07:38 Carbon Dioxide 26 mmol/L (21-32) 07/09/20 07:38 Anion Gap 8 MMOL/L (8-16) 07/09/20 07:38 BUN 9.3 mg/dL (7-18) 07/09/20 07:38 Creatinine 0.6 mg/dL (0.55-1.3) 07/09/20 07:38 Calcium 9.3 mg/dL (8.5-10.1) 07/09/20 07:38 Total Bilirubin 0.6 mg/dL (0.2-1) 07/07/20 07:07 AST 18 U/L (15-37) 07/07/20 07:07 ALT 20 U/L (13-61) 07/07/20 07:07 Alkaline Phosphatase 73 U/L (45-117) 07/07/20 07:07 Total Protein 7.2 g/dl (6.4-8.2) 07/07/20 07:07 Albumin 3.4 g/dl (3.4-5.0) 07/07/20 07:07 ASSESSMENT AND PLAN: Pt is a 40 year old female with PMHx of anemia, HTN not currently on any meds, s/p gastric sleeve complicated with 4u of blood required, MVP, and asthma presenting to ED with light headedness and weakness admitted for anemia with Hgb 6.8. Pt reports heavy menstrual bleeding monthly, but LNMP was 2 weeks prior. # Acute severe iron def improving Hg FOBT negative IV venofer q48h x5 doses (recieved 2 during inpatient) GI consult appreciated HemOnc consult appreciated HTN Asthma DVT proph
--- NOTE | 2020-07-09 12:51 | DS ---
Physical Exam: SUBJECTIVE: Patient seen and examined OBJECTIVE: Vital Signs Period Temp Pulse Resp BP Sys/Cash Pulse Ox Last 24 Hr 97.6 F-98.7 F 73-104 16-20 133-140/76-88 99-100 PHYSICAL EXAM GENERAL: The patient is awake, alert, and fully oriented, in no acute distress. HEAD: Normal with no signs of trauma. EYES: PERRL, extraocular movements intact, sclera anicteric, conjunctiva clear. ENT: Ears normal, nares patent, oropharynx clear without exudates, moist mucous membranes. NECK: Trachea midline, full range of motion, supple. LUNGS: Breath sounds equal, clear to auscultation bilaterally, no wheezes, no crackles, no accessory muscle use. HEART: Regular rate and rhythm, S1, S2 without murmur, rub or gallop. ABDOMEN: Soft, nontender, nondistended, normoactive bowel sounds, no guarding, no rebound, no hepatosplenomegaly, no masses. EXTREMITIES: 2+ pulses, warm, well-perfused, no edema. NEUROLOGICAL: Cranial nerves II through XII grossly intact. Normal speech, gait not observed. PSYCH: Normal mood, normal affect. SKIN: Warm, dry, normal turgor, no rashes or lesions noted. LABS Laboratory Results - last 24 hr 07/05/20 07/09/20 07/09/20 09:31 07:38 07:38 WBC 5.2 RBC 4.10 Hgb 7.9 L Hct 25.9 L MCV 63.0 L MCH 19.2 L MCHC 30.5 L RDW 33.6 H Plt Count 219 MPV 9.1 Sodium 138 Potassium 3.6 Chloride 104 Carbon Dioxide 26 Anion Gap 8 BUN 9.3 Creatinine 0.6 Est GFR (CKD-EPI)AfAm 134.01 Est GFR (CKD-EPI)NonAf 115.63 Random Glucose 93 Calcium 9.3 Phosphorus 4.4 Magnesium 2.0 Blood Type B POSITIVE Antibody Screen Negative Crossmatch See Detail HOSPITAL COURSE: Date of Admission:07/05/20 Pt is a 40 year old female with PMHx of anemia, HTN not currently on any meds, s/p gastric sleeve complicated with 4u of blood required, MVP, and asthma presenting to ED with light headedness and weakness admitted for anemia with Hgb 6.8. Pt reports heavy menstrual bleeding monthly, but LNMP was 2 weeks prior. Pt received 1 u pRBC and had an improvement of Hgb to 7.6. Pt had increased retic count indicating appropriate response. FOBT was negative. GI was consulted and there was no plan for inpt EGD/colonoscopy. Hem/onc was consulted and was started on IV venofer receiving 2 doses, will need to complete 3 more doses outpatient. Pt found to be hypertensive, started on Norvasc 5mg daily. Date of Discharge: 07/09/20 Minutes to complete discharge: 36 Discharge Summary Problems reviewed: Yes Reason For Visit: TRANSFUSION DEPENDENT ANEMIA Current Active Problems Anemia requiring transfusions (Acute) Generalized weakness (Acute) Iron deficiency anemia (Acute) Lightheadedness (Acute) Condition: Improved - Instructions Diet, Activity, Other Instructions: You came to the hospital with lightheadedness and weakness. You were found to have a low blood count and received 1 unit of blood. The cause of your anemia was likely due to iron deficiency. Your hemoglobin went from 6.8 to 7.6. Your last hemoglobin before discharge was 7.9. You were also found to have high blood pressure and were started on a new medication called Norvasc. You will need to continue iron infusion to replete your body stores of iron. You were found to have a urine infection and were started on a medication called Macrobid, you will need to complete the course. Please START your new blood pressure medication, Norvasc 5mg once daily. Please complete your urinary infection medication, Macrobid, 500mg every 6 hours. Please follow up with your primary care physician, Dr. Nunez, in 1 week for general health maintenance. You will need to repeat your blood work. Please follow up with your trouble clerk-oncologist, Dr. Hodge, in 1 week. You will need three more sessions of iron infusion If you have any new, worsening or concerning symptoms please call 911 or return to the ED. Referrals: Norris Nunez MD [Primary Care Provider] - Светлана Hodge MD [Staff Physician] - Disposition: HOME - Home Medications Comprehensive Discharge Medication List: Ambulatory Orders Amlodipine Besylate [Norvasc -] 5 mg PO DAILY #30 tablet 07/06/20 Nitrofurantoin Macrocrystal [Macrodantin -] 50 mg PO Q6HPO #16 capsule 07/09/20 This patient is new to me today: No Emergency Visit: Yes ED Registration Date: 07/05/20 Care time: The patient presented to the Emergency Department on the above date and was hospitalized for further evaluation of their emergent condition. Critical Care patient: No - Discharge Referral Referred to [facility] Med P.C[facility] No ATTENDING PHYSICIAN STATEMENT I saw and evaluated the patient. I reviewed the resident's note and discussed the case with the resident. I agree with the resident's findings and plan as documented. SUBJECTIVE: OBJECTIVE: ASSESSMENT AND PLAN:
[2020-07-09] MEDS ORDERED: PT OWN MED DRAWER 7, Y5N ONE (13:34)
[2020-07-14 12:07] LABS: HGB SOLUBILITY Positive (Negative); Hgb C 0 % (0.0); Hgb F 0 % (0.0-2.0); Hgb S 23.3 % (0.0)
== END 2020-07-09 15:12 | disposition home or self-care (01) | DRG 812 ==
LOC: JER 08:46 → JERBED 09:58 → J7W 18:49
PROVIDERS: ADMIT Student in an Organized Health Care Education/Training Program; ATTEND Student in an Organized Health Care Education/Training Program
PROC: 30233N1 Transfusion of Nonautologous Red Blood Cells into Peripheral Vein, Percutaneous Approach (ICD-10-PCS; principal; 2020-07-05)
DX: D50.9 Iron deficiency anemia, unspecified (principal); N39.0 Urinary tract infection, site not specified; J45.909 Unspecified asthma, uncomplicated; I10 Essential (primary) hypertension; D64.9 Anemia, unspecified; K46.9 Unspecified abdominal hernia without obstruction or gangrene; I34.1 Nonrheumatic mitral (valve) prolapse; N92.0 Excessive and frequent menstruation with regular cycle; Z98.84 Bariatric surgery status; E66.01 Morbid (severe) obesity due to excess calories; Z68.33 Body mass index [BMI] 33.0-33.9, adult; B95.1 Streptococcus, group B, as the cause of diseases classified elsewhere
CPT/HCPCS: 36415; 36430; 71045-TC-FY; 80048; 80053; 82272; 82728; 83010; 83021; 83540; 83550; 83615; 83735; 84100; 84443; 84484; 84703; 85025; 85027; 85045; 85610; 85660; 85730; 86850; 86900; 86901; 86922; 87077; 87086; 93005; 93010; 99285-25; J1756; P9058; U0003

== ENCOUNTER 2020-12-14 10:30 | Emergency (ER) | payer OTHER ==
[2020-12-14 10:42] VITALS: BP 170/101; PULSE 69; TEMP 98.7; BMI 34.9
[2020-12-14] MEDS ORDERED: MECLIZINE HCL 25 MG TABLET (FP) PO ONE (11:01)
[2020-12-14] MEDS ORDERED: IBUPROFEN 600 MG TABLET (FP) PO ONE ×2 (11:01→11:13)
[2020-12-14] MEDS ORDERED: MECLIZINE HCL 25 MG TABLET (FP) ONE (11:13)
== END 2020-12-14 12:02 | disposition home or self-care (01) ==
LOC: FER 10:30
DX: J09.X2 Influenza due to identified novel influenza A virus with other respiratory manifestations (principal)
CPT/HCPCS: 87070; 87804; 87880; 99283-25; C9803; U0003

== ENCOUNTER 2021-02-28 17:55 | Emergency (ER) | payer OTHER ==
[2021-02-28 18:12] VITALS: BMI 36.0
[2021-02-28] MEDS ORDERED: ACETAMINOPHEN 500 MG TABLET (FP) ONE (18:22)
[2021-02-28] MEDS ORDERED: LACTATED RINGERS SOLUTION 1000 ML INFUS.BAG IV ONE (18:22)
[2021-02-28] MEDS ORDERED: ACETAMINOPHEN 500 MG TABLET (FP) PO ONE (18:22)
[2021-02-28] MEDS ORDERED: DEXAMETHASONE SOD PHOSPHATE 10 MG/1 ML VIAL IVPUSH ONE (18:49)
[2021-02-28] MEDS ORDERED: BENZOCAINE/MENTH/CETYLPYRD CL 1 EACH LOZENGE MM PRN (18:52)
[2021-02-28] MEDS ORDERED: DEXAMETHASONE SOD PHOSPHATE 10 MG/1 ML VIAL ONE (18:53)
[2021-02-28] MEDS ORDERED: ALBUTEROL SO4 2.5/IPRATROPIUM 0.5 INH SOL 3 ML VIAL.NEB. NEB ONE ×2 (19:06→19:13)
[2021-02-28 19:10] LABS: HEMOGLOBIN 9.9 GM/dl (10.7-15.3); MCH 23.2 pg (25.7-33.7); MCHC 31.9 g/dl (32.0-36.0); MEAN CELL VOLUME 72.7 fl (80-96); MEAN PLT VOLUME 8.1 fl (7.5-11.1); PLATELET COUNT 546 K/MM3 (134-434); RBC 4.27 M/mm3 (3.60-5.2); WHITE BLOOD COUNT 13.6 K/mm3 (4.0-10.8)
[2021-02-28 19:15] LABS: ACTIVATED PTT 28.3 SECONDS (25.2-36.5)
[2021-02-28 19:19] LABS: ALK PHOS 107 U/L (45-117); ANION GAP 12 MMOL/L (8-16); BILIRUBIN,DIRECT 0.2 mg/dL (0.0-0.2); BILIRUBIN,TOTAL 1.5 mg/dl (0.2-1); CALCIUM 9.1 mg/dl (8.5-10); CHLORIDE 93 mmol/L (98-107); CO2 25 mmol/L (21-32); CREATININE 0.7 mg/dl (0.55-1.3); GLUCOSE,RANDOM 147 mg/dl (74-106); LDH 192 U/L (84-246); SGOT/AST 24 U/L (15-37); SGPT/ALT 16 U/L (13-61); SODIUM 130 mmol/L (136-145); TOT PROT 8.3 g/dl (6.4-8.2)
[2021-02-28 19:19] LABS: INR 1.4 (0.82-1.09); PROTHROMBIN TIME (PATIENT) 15.3 SEC (10.2-13.0)
[2021-02-28] MEDS ORDERED: SODIUM CHLORIDE 1,000 ML IV ONE (19:19)
[2021-02-28] MEDS ORDERED: cloNIDine HCL 0.1 MG TABLET PO ONE (20:00)
[2021-02-28 20:45] VITALS: TEMP 100
[2021-02-28 20:48] LABS: EPITHELIAL CELLS FEW /hpf
[2021-02-28 20:53] LABS: ANISOCYTOSIS 3+
[2021-02-28 20:54] LABS: PLATELET ESTIMATE SLT INCREASE
[2021-02-28] MEDS ORDERED: SODIUM CHLORIDE 1,000 ML IV SCH (21:00)
[2021-02-28 22:24] VITALS: BP 160/80; PULSE 66
== END 2021-02-28 22:28 | disposition home or self-care (01) ==
LOC: FER 17:55
PROC: 3E0F7GC Introduction of Other Therapeutic Substance into Respiratory Tract, Via Natural or Artificial Opening (ICD-10-PCS; principal; 2021-02-28)
PROC: 3E033GC Introduction of Other Therapeutic Substance into Peripheral Vein, Percutaneous Approach (ICD-10-PCS; 2021-02-28)
DX: R00.0 Tachycardia, unspecified (principal); R05 Cough; R50.9 Fever, unspecified; Z11.52 Encounter for screening for COVID-19
CPT/HCPCS: 36415; 71046-TC-FY; 71275-TC; 80053; 81003; 81015; 82248; 82550; 82553; 82728; 83615; 84484; 84703; 85025; 85379; 85610; 85730; 86140; 87086; 87186; 87804; 93005; 99285-25; C9803; J1100; Q9967; U0003; U0005

== ENCOUNTER 2021-03-02 03:32 | Inpatient (IN) | payer OTHER ==
[2021-03-02] MEDS ORDERED: DEXAMETHASONE SOD PHOSPHATE 10 MG/1 ML VIAL IVPB ONE (04:11)
[2021-03-02] MEDS ORDERED: ACETAMINOPHEN 1000 MG/100 ML VIAL (NON FORMULARY) IVPB ONE (04:11)
[2021-03-02] MEDS ORDERED: SODIUM CHLORIDE 1,000 ML IV STA (04:12)
[2021-03-02] MEDS ORDERED: ACETAMINOPHEN INJECTION 100 ML IVPB ONE (04:14)
[2021-03-02] MEDS ORDERED: DEXAMETHASONE SOD PHOSPHATE 10 MG/1 ML VIAL ONE (04:14)
[2021-03-02 05:19] LABS: CHLORIDE 94 mmol/L (98-107); SODIUM 129 mmol/L (136-145)
[2021-03-02 05:22] LABS: CALCIUM 8.8 mg/dL (8.5-10.1)
[2021-03-02 05:23] LABS: ALBUMIN 3.2 g/dl (3.4-5.0); ANION GAP 11 MMOL/L (8-16); CO2 24 mmol/L (21-32); GLUCOSE,RANDOM 143 mg/dL (74-106)
[2021-03-02 05:25] LABS: BILIRUBIN,DIRECT 0.3 mg/dL (0.0-0.2); CREATININE 1.1 mg/dL (0.55-1.3); SGOT/AST 36 U/L (15-37); SGPT/ALT 21 U/L (13-61)
[2021-03-02 05:27] LABS: ALK PHOS 108 U/L (45-117); LDH 240 U/L (84-246); TOT PROT 7.7 g/dl (6.4-8.2)
[2021-03-02 05:31] LABS: HEMATOCRIT 31.9 % (32.4-45.2); HEMOGLOBIN 10.3 GM/dL (10.7-15.3); LYMPH % 3.5 % (8-40); MCH 22.8 pg (25.7-33.7); MCHC 32.3 g/dl (32.0-36.0); MEAN CELL VOLUME 70.7 fl (80-96); MONO % 3.4 % (3.8-10.2); NEUT % 92.1 % (42.8-82.8); PLATELET COUNT 326 K/MM3 (134-434); RBC 4.51 M/mm3 (3.60-5.2); RDW 26.4 % (11.6-15.6); WHITE BLOOD COUNT 13.2 K/mm3 (4.0-10.0)
[2021-03-02 05:38] LABS: LACTIC ACID 2.2 mmol/L (0.4-2.0)
[2021-03-02 05:39] LABS: INR 1.19 (0.83-1.09); PROTHROMBIN TIME (PATIENT) 14.3 SEC (9.7-13.0)
[2021-03-02 05:41] LABS: ACTIVATED PTT 29.2 SECONDS (25.2-36.5)
[2021-03-02] MEDS ORDERED: CEFTRIAXONE 1,000 MG in DEXTROSE 5%-WATER - 50 ML IVPB ONE (05:48)
[2021-03-02] MEDS ORDERED: cefTRIAXone SODIUM 1 GM VIAL ONE (05:49)
[2021-03-02] MEDS ORDERED: POTASSIUM CHLORIDE TABS 20 MEQ TABLET.ER (FP) PO ONE ×2 (07:22→07:41)
[2021-03-02] MEDS ORDERED: LACTATED RINGERS SOLUTION 1000 ML INFUS.BAG IV ONE (07:23)
[2021-03-02 08:28] LABS: EPI CELLS 14 /uL (0-25.1); HYALINE CASTS 2 /uL (0-3.1); PH,URINE 6.5 (5.0-8.0); URINE APPEARANCE CLEAR; URINE BACTERIA 722 /uL (0-1359); URINE BILIRUBIN NEGATIVE (NEGATIVE); URINE COLOR DK YELLOW; URINE GLUCOSE (UA) NEGATIVE (NEGATIVE); URINE KETONE 1+ (NEGATIVE); URINE LEUK ESTERASE 2+ (NEGATIVE); URINE NITRITE NEGATIVE (NEGATIVE); URINE PROTEIN 2+ (NEGATIVE); URINE RBC 42 /uL (0-23.9); URINE WBC 335 /uL (0-25.8)
[2021-03-02 09:37] LABS: ANISOCYTOSIS 2+; MACROCYTOSIS 0; PLATELET ESTIMATE NORMAL
[2021-03-02] MEDS ORDERED: morphine CARPU-JECT 4 MG/1 ML DISP.SYRIN IVPUSH ONE (09:43)
[2021-03-02] MEDS ORDERED: morphine SULFATE 4 MG/ML VIAL ONE (09:44)
[2021-03-02 11:26] VITALS: BMI 34.8
[2021-03-02] MEDS ORDERED: SODIUM CHLORIDE 0.45% 1,000 ML IV SCH (14:30)
[2021-03-02] MEDS: ALBUTEROL SO4 2.5/IPRATROPIUM 0.5 INH SOL 3 ML VIAL.NEB. NEB SCH ×2 (15:15→21:20)
[2021-03-02] MEDS ORDERED: SODIUM CHLORIDE 1,000 ML IV SCH ×2 (15:15→15:23)
[2021-03-02 16:27] LABS: CALCIUM 8.2 mg/dl (8.5-10); CREATININE 0.8 mg/dl (0.55-1.3); MAGNESIUM 1.5 mg/dL (1.8-2.4)
[2021-03-02] MEDS: ACETAMINOPHEN 325 MG TABLET (FP) PO PRN ×2 (16:45→23:58)
[2021-03-02] MEDS ORDERED: oxyCODONE HCL 5 MG TABLET ONE (17:56)
[2021-03-02] MEDS: oxyCODONE HCL 5 MG TABLET PO PRN ×2 (18:00→23:56)
[2021-03-02] MEDS ORDERED: MAGNESIUM SULF 50% (8.12 MEQ/2 ML-1 GM VIAL) IVPB ONE (18:27)
[2021-03-02] MEDS: FERROUS SO4 325 MG TABLET (FP) PO SCH (21:20)
[2021-03-03] MEDS: oxyCODONE HCL 5 MG TABLET PO PRN ×3 (07:56→18:24)
[2021-03-03] MEDS: ACETAMINOPHEN 325 MG TABLET (FP) PO PRN ×2 (07:57→14:13)
[2021-03-03 08:13] LABS: HEMATOCRIT 27.1 % (32.4-45.2); HEMOGLOBIN 8.9 GM/dl (10.7-15.3); MCH 23.9 pg (25.7-33.7); MCHC 32.8 g/dl (32.0-36.0); MEAN CELL VOLUME 72.8 fl (80-96); MEAN PLT VOLUME 8.8 fl (7.5-11.1); PLATELET COUNT 279 K/MM3 (134-434); RBC 3.72 M/mm3 (3.60-5.2); RDW 24.9 % (11.6-15.6); WHITE BLOOD COUNT 8.7 K/mm3 (4.0-10.8)
[2021-03-03 08:20] LABS: ALBUMIN 2.8 g/dl (3.4-5.0); BILIRUBIN,TOTAL 0.6 mg/dl (0.2-1); CALCIUM 8.4 mg/dl (8.5-10); CREATININE 0.7 mg/dl (0.55-1.3); MAGNESIUM 1.8 mg/dL (1.8-2.4); TOT PROT 6.3 g/dl (6.4-8.2)
[2021-03-03 08:31] LABS: ADD RBC MORPHOLOGY YES
[2021-03-03] MEDS ORDERED: cefTRIAXone SODIUM 1 GM VIAL ONE (09:01)
[2021-03-03] MEDS ORDERED: DEXTROSE 5%-WATER - 50 ML IVPB ONE (09:01)
[2021-03-03] MEDS: ALBUTEROL SO4 2.5/IPRATROPIUM 0.5 INH SOL 3 ML VIAL.NEB. NEB SCH ×3 (09:10→20:41)
[2021-03-03] MEDS: amLODIPine BESYLATE 5 MG TABLET (FP) PO SCH (09:11)
[2021-03-03] MEDS: ENOXAPARIN NA (PORCINE) 40 MG/0.4 ML DISP.SYRIN SQ SCH (09:11)
[2021-03-03] MEDS: FERROUS SO4 325 MG TABLET (FP) PO SCH ×2 (09:11→21:50)
[2021-03-03] MEDS: CEFTRIAXONE 1 GM in DEXTROSE 5%-WATER - 50 ML IVPB SCH (09:13)
[2021-03-03 09:36] LABS: PLATELET ESTIMATE ADEQUATE
[2021-03-03 09:37] LABS: TARGET CELLS FEW
[2021-03-03 09:52] LABS: ANISOCYTOSIS 2+
[2021-03-03] MEDS ORDERED: ACETAMINOPHEN 1000 MG/100 ML VIAL (NON FORMULARY) IVPB ONE ×2 (14:04→20:00)
[2021-03-03] MEDS ORDERED: SODIUM CHLORIDE 1,000 ML IV SCH (14:05)
[2021-03-03] MEDS ORDERED: IBUPROFEN 800 MG/8 ML IJ IVPB ONE (17:55)
[2021-03-03] MEDS ORDERED: ACETAMINOPHEN 1000 MG/100 ML VIAL (NON FORMULARY) IVPB SCH (18:00)
[2021-03-03] MEDS: ACETAMINOPHEN 1000 MG/100 ML VIAL (NON FORMULARY) IVPB SCH (20:34)
[2021-03-04] MEDS: ACETAMINOPHEN 1000 MG/100 ML VIAL (NON FORMULARY) IVPB SCH ×4 (02:21→19:15)
[2021-03-04] MEDS: oxyCODONE HCL 5 MG TABLET PO PRN ×2 (02:40→19:16)
[2021-03-04 07:58] LABS: BASO % 0.5 % (0-2.0); EOS % 0.1 % (0-4.5); HEMATOCRIT 26.9 % (32.4-45.2); HEMOGLOBIN 8.4 GM/dl (10.7-15.3); LYMPH % 15.5 % (8-40); MCH 22.8 pg (25.7-33.7); MCHC 31.2 g/dl (32.0-36.0); MEAN CELL VOLUME 72.9 fl (80-96); MEAN PLT VOLUME 9.1 fl (7.5-11.1); MONO % 9.8 % (3.8-10.2); NEUT % 74.1 % (42.8-82.8); PLATELET COUNT 248 K/MM3 (134-434); RBC 3.69 M/mm3 (3.60-5.2); RDW 24.7 % (11.6-15.6)
[2021-03-04 08:04] LABS: ALBUMIN 2.6 g/dl (3.4-5.0); BILIRUBIN,TOTAL 0.4 mg/dl (0.2-1); CALCIUM 8.2 mg/dl (8.5-10); CREATININE 0.7 mg/dl (0.55-1.3); MAGNESIUM 1.7 mg/dL (1.8-2.4)
[2021-03-04] MEDS ORDERED: MAGNESIUM SULF 50% (8.12 MEQ/2 ML-1 GM VIAL) IVPB ONE (08:26)
[2021-03-04] MEDS ORDERED: MAGNESIUM SULFATE IN WATER 2 GM/50 ML IVPB IVPB ONE (08:45)
[2021-03-04] MEDS ORDERED: cefTRIAXone SODIUM 1 GM VIAL ONE (08:59)
[2021-03-04] MEDS ORDERED: DEXTROSE 5%-WATER - 50 ML IVPB ONE ×3 (09:00→21:35)
[2021-03-04] MEDS: CEFTRIAXONE 1 GM in DEXTROSE 5%-WATER - 50 ML IVPB SCH (09:19)
[2021-03-04] MEDS: ALBUTEROL SO4 2.5/IPRATROPIUM 0.5 INH SOL 3 ML VIAL.NEB. NEB SCH ×3 (09:20→19:15)
[2021-03-04] MEDS: amLODIPine BESYLATE 5 MG TABLET (FP) PO SCH (09:21)
[2021-03-04] MEDS: ENOXAPARIN NA (PORCINE) 40 MG/0.4 ML DISP.SYRIN SQ SCH (09:21)
[2021-03-04] MEDS: FERROUS SO4 325 MG TABLET (FP) PO SCH ×2 (09:21→21:39)
[2021-03-04] MEDS ORDERED: PIPERACILLIN/TAZOBACTAM 3.375 GM VIAL IVPB ONE ×2 (14:14→21:35)
[2021-03-04] MEDS: PIPERACILLIN/TAZOB 3.375 GM 3.375 GM in DEXTROSE 5%-WATER - 50 ML IVPB SCH ×2 (14:23→21:39)
[2021-03-05] MEDS: ACETAMINOPHEN 1000 MG/100 ML VIAL (NON FORMULARY) IVPB SCH ×4 (01:30→15:06)
[2021-03-05] MEDS ORDERED: PIPERACILLIN/TAZOBACTAM 3.375 GM VIAL IVPB ONE ×4 (05:56→21:04)
[2021-03-05] MEDS ORDERED: DEXTROSE 5%-WATER - 50 ML IVPB ONE ×4 (05:56→21:04)
[2021-03-05] MEDS: PIPERACILLIN/TAZOB 3.375 GM 3.375 GM in DEXTROSE 5%-WATER - 50 ML IVPB SCH ×3 (06:07→21:09)
[2021-03-05 08:11] LABS: BASO % 0.6 % (0-2.0); EOS % 0.6 % (0-4.5); HEMATOCRIT 26.2 % (32.4-45.2); HEMOGLOBIN 8.3 GM/dl (10.7-15.3); LYMPH % 20.4 % (8-40); MCH 22.9 pg (25.7-33.7); MCHC 31.8 g/dl (32.0-36.0); MEAN PLT VOLUME 8.4 fl (7.5-11.1); MONO % 13.7 % (3.8-10.2); NEUT % 64.7 % (42.8-82.8); PLATELET COUNT 270 K/MM3 (134-434); RBC 3.64 M/mm3 (3.60-5.2); RDW 24.7 % (11.6-15.6); WHITE BLOOD COUNT 5.9 K/mm3 (4.0-10.8)
[2021-03-05 08:13] LABS: ALBUMIN 2.9 g/dl (3.4-5.0); BILIRUBIN,TOTAL 0.4 mg/dl (0.2-1); CALCIUM 8.3 mg/dl (8.5-10); CREATININE 0.6 mg/dl (0.55-1.3); TOT PROT 6.5 g/dl (6.4-8.2)
[2021-03-05 09:07] LABS: SARS-CoV-2 NAA Not Detected (Not Detected)
[2021-03-05] MEDS: ALBUTEROL SO4 2.5/IPRATROPIUM 0.5 INH SOL 3 ML VIAL.NEB. NEB SCH ×2 (11:19→15:08)
[2021-03-05] MEDS: ENOXAPARIN NA (PORCINE) 40 MG/0.4 ML DISP.SYRIN SQ SCH (11:19)
[2021-03-05] MEDS: POTASSIUM CHLORIDE TABS 20 MEQ TABLET.ER (FP) PO SCH ×2 (11:20→17:38)
[2021-03-05] MEDS: amLODIPine BESYLATE 5 MG TABLET (FP) PO SCH (11:20)
[2021-03-05] MEDS: FERROUS SO4 325 MG TABLET (FP) PO SCH ×2 (11:20→21:09)
[2021-03-05] MEDS: oxyCODONE HCL 5 MG TABLET PO PRN (22:09)
[2021-03-06] MEDS ORDERED: PIPERACILLIN/TAZOBACTAM 3.375 GM VIAL IVPB ONE ×3 (05:35→21:20)
[2021-03-06] MEDS ORDERED: DEXTROSE 5%-WATER - 50 ML IVPB ONE ×3 (05:36→21:21)
[2021-03-06] MEDS: PIPERACILLIN/TAZOB 3.375 GM 3.375 GM in DEXTROSE 5%-WATER - 50 ML IVPB SCH ×3 (05:44→21:36)
[2021-03-06] MEDS ORDERED: POTASSIUM CHLORIDE TABS 20 MEQ TABLET.ER (FP) PO ONE (09:00)
[2021-03-06] MEDS ORDERED: ALBUTEROL SO4 2.5/IPRATROPIUM 0.5 INH SOL 3 ML VIAL.NEB. NEB PRN (09:32)
[2021-03-06] MEDS: amLODIPine BESYLATE 5 MG TABLET (FP) PO SCH (09:51)
[2021-03-06] MEDS: FERROUS SO4 325 MG TABLET (FP) PO SCH ×2 (09:51→21:36)
[2021-03-06] MEDS: ENOXAPARIN NA (PORCINE) 40 MG/0.4 ML DISP.SYRIN SQ SCH (09:52)
[2021-03-06] MEDS: oxyCODONE HCL 5 MG TABLET PO PRN (13:23)
[2021-03-06] MEDS ORDERED: guaiFENesin/D-METHORPHAN HB 10 ML UNIT-DOSE CUPS PO PRN (14:53)
[2021-03-06] MEDS: ACETAMINOPHEN 325 MG TABLET (FP) PO PRN ×2 (15:20→21:36)
[2021-03-06] MEDS ORDERED: LORATADINE 10 MG TABLET PO ONE (16:03)
[2021-03-06] MEDS: ALBUTEROL SO4 2.5/IPRATROPIUM 0.5 INH SOL 3 ML VIAL.NEB. NEB SCH (19:43)
[2021-03-07] MEDS ORDERED: PIPERACILLIN/TAZOBACTAM 3.375 GM VIAL IVPB ONE ×3 (05:13→21:09)
[2021-03-07] MEDS ORDERED: DEXTROSE 5%-WATER - 50 ML IVPB ONE ×3 (05:14→21:09)
[2021-03-07] MEDS: PIPERACILLIN/TAZOB 3.375 GM 3.375 GM in DEXTROSE 5%-WATER - 50 ML IVPB SCH ×3 (06:02→21:17)
[2021-03-07] MEDS: ALBUTEROL SO4 2.5/IPRATROPIUM 0.5 INH SOL 3 ML VIAL.NEB. NEB SCH ×4 (06:03→19:17)
[2021-03-07 08:20] LABS: BASO % 0.6 % (0-2.0); EOS % 0.9 % (0-4.5); HEMATOCRIT 26.5 % (32.4-45.2); HEMOGLOBIN 8.2 GM/dl (10.7-15.3); LYMPH % 18.7 % (8-40); MCH 22.7 pg (25.7-33.7); MEAN CELL VOLUME 73.2 fl (80-96); MEAN PLT VOLUME 8.7 fl (7.5-11.1); MONO % 12.5 % (3.8-10.2); NEUT % 67.3 % (42.8-82.8); PLATELET COUNT 417 K/MM3 (134-434); RBC 3.62 M/mm3 (3.60-5.2); WHITE BLOOD COUNT 7.7 K/mm3 (4.0-10.8)
[2021-03-07 08:23] LABS: ALBUMIN 3.1 g/dl (3.4-5.0); BILIRUBIN,TOTAL 0.4 mg/dl (0.2-1); CALCIUM 8.7 mg/dl (8.5-10); CREATININE 0.7 mg/dl (0.55-1.3); MAGNESIUM 1.7 mg/dL (1.8-2.4); TOT PROT 6.9 g/dl (6.4-8.2)
[2021-03-07 08:36] LABS: ADD RBC MORPHOLOGY YES
[2021-03-07] MEDS ORDERED: MAGNESIUM SULF 50% (8.12 MEQ/2 ML-1 GM VIAL) IVPB ONE (08:46)
[2021-03-07] MEDS ORDERED: MAGNESIUM SULFATE IN WATER 2 GM/50 ML IVPB IVPB ONE (09:00)
[2021-03-07] MEDS: ENOXAPARIN NA (PORCINE) 40 MG/0.4 ML DISP.SYRIN SQ SCH (09:18)
[2021-03-07] MEDS: FERROUS SO4 325 MG TABLET (FP) PO SCH ×2 (09:18→21:17)
[2021-03-07] MEDS: amLODIPine BESYLATE 5 MG TABLET (FP) PO SCH (09:18)
[2021-03-07 10:39] LABS: ANISOCYTOSIS 3+; PLATELET ESTIMATE ADEQUATE
[2021-03-07] MEDS ORDERED: ALBUTEROL SO4 2.5/IPRATROPIUM 0.5 INH SOL 3 ML VIAL.NEB. NEB PRN (13:40)
[2021-03-08] MEDS ORDERED: PIPERACILLIN/TAZOBACTAM 3.375 GM VIAL IVPB ONE ×2 (05:33→14:37)
[2021-03-08] MEDS ORDERED: DEXTROSE 5%-WATER - 50 ML IVPB ONE ×2 (05:33→14:37)
[2021-03-08] MEDS: PIPERACILLIN/TAZOB 3.375 GM 3.375 GM in DEXTROSE 5%-WATER - 50 ML IVPB SCH ×2 (05:46→14:51)
[2021-03-08] MEDS: FERROUS SO4 325 MG TABLET (FP) PO SCH (09:18)
[2021-03-08] MEDS: amLODIPine BESYLATE 5 MG TABLET (FP) PO SCH (09:18)
[2021-03-08] MEDS: ENOXAPARIN NA (PORCINE) 40 MG/0.4 ML DISP.SYRIN SQ SCH (09:18)
[2021-03-08 13:51] VITALS: BP 143/86; PULSE 94; TEMP 98.7
== END 2021-03-08 16:43 | disposition home or self-care (01) | DRG 872 ==
LOC: FER 03:32 → FM/S 09:35
PROVIDERS: ADMIT Internal Medicine; ATTEND Nurse Practitioner Acute Care
DX: A41.51 Sepsis due to Escherichia coli [E. coli] (principal); E87.1 Hypo-osmolality and hyponatremia; J45.901 Unspecified asthma with (acute) exacerbation; E87.2 Acidosis; N39.0 Urinary tract infection, site not specified; D72.829 Elevated white blood cell count, unspecified; R50.9 Fever, unspecified; R65.20 Severe sepsis without septic shock; I10 Essential (primary) hypertension; J45.909 Unspecified asthma, uncomplicated; E87.6 Hypokalemia; E83.42 Hypomagnesemia; D64.9 Anemia, unspecified; D50.9 Iron deficiency anemia, unspecified; F41.8 Other specified anxiety disorders; E66.9 Obesity, unspecified; Z68.34 Body mass index [BMI] 34.0-34.9, adult; Z98.84 Bariatric surgery status
CPT/HCPCS: 36415; 71045-TC-FY; 74177-TC; 80048; 80053; 81003; 81015; 82248; 82550; 82553; 82728; 83605; 83615; 83690; 83735; 84484; 85025; 85379; 85610; 85730; 86140; 87040; 87077; 87086; 87186; 93005; 94640; 99285-25; C9803; J0131; J1100; U0003; U0005

== ENCOUNTER 2021-08-24 20:25 | Emergency (ER) | payer OTHER ==
[2021-08-24 20:36] VITALS: BMI 37.8
[2021-08-24 22:20] LABS: HEMATOCRIT 26.1 % (32.4-45.2); HEMOGLOBIN 8.1 GM/dL (10.7-15.3); MCHC 31.2 g/dl (32.0-36.0); MEAN CELL VOLUME 61.7 fl (80-96); MEAN PLT VOLUME 8.3 fl (7.5-11.1); PLATELET COUNT 282 10^3/uL (134-434); RBC 4.23 M/mm3 (3.60-5.2); RDW 23.9 % (11.6-15.6)
[2021-08-24 22:21] LABS: HCG,QUALITATIVE URINE Negative
[2021-08-24 22:27] VITALS: BP 159/98; TEMP 98.6
[2021-08-24 22:27] LABS: MCH 19.3 pg (25.7-33.7)
[2021-08-24 22:29] LABS: URINE AMPHETAMINES NEGATIVE (NEGATIVE)
[2021-08-24 22:30] LABS: COCAINE, UR NEGATIVE (NEGATIVE); EPI CELLS >36 /uL (0-25.1); HYALINE CASTS 2 /uL (0-3.1); METHADONE, UR NEGATIVE (NEGATIVE); OPIATES, URI NEGATIVE (NEGATIVE); PHENCYCLIDINE,URINE NEGATIVE (NEGATIVE); URINE APPEARANCE CLOUDY; URINE BACTERIA 3202 /uL (0-1359); URINE BARBITURATES NEGATIVE (NEGATIVE); URINE BENZODIAZEPINES NEGATIVE (NEGATIVE); URINE BILIRUBIN NEGATIVE (NEGATIVE); URINE COLOR YELLOW; URINE GLUCOSE (UA) NEGATIVE (NEGATIVE); URINE KETONE 3+ (NEGATIVE); URINE LEUK ESTERASE TRACE (NEGATIVE); URINE NITRITE NEGATIVE (NEGATIVE); URINE PROTEIN 1+ (NEGATIVE); URINE RBC 12 /uL (0-23.9); URINE WBC 43 /uL (0-25.8)
[2021-08-24 22:47] LABS: CHLORIDE 99 mmol/L (98-107); SODIUM 136 mmol/L (136-145)
[2021-08-24 22:52] LABS: BLOOD UREA NITROGEN 9.2 mg/dL (7-18); CALCIUM 9.3 mg/dL (8.5-10.1)
[2021-08-24 22:53] LABS: ALBUMIN 3.7 g/dl (3.4-5.0); ANION GAP 16 MMOL/L (8-16); CO2 21 mmol/L (21-32); GLUCOSE,RANDOM 75 mg/dL (74-106)
[2021-08-24 22:56] LABS: CREATININE 0.8 mg/dL (0.55-1.3); SGOT/AST 38 U/L (15-37); SGPT/ALT 22 U/L (13-61)
[2021-08-24 22:57] LABS: BILIRUBIN,TOTAL 1.7 mg/dL (0.2-1)
[2021-08-24 22:58] LABS: TOT PROT 8.4 g/dl (6.4-8.2)
[2021-08-24 22:59] LABS: ALK PHOS 103 U/L (45-117)
[2021-08-24] MEDS ORDERED: LACTATED RINGERS SOLUTION 1000 ML INFUS.BAG IV ONE (23:03)
[2021-08-24] MEDS ORDERED: METOCLOPRAMIDE HCL INJECTION 10 MG/2 ML VIAL IVPUSH ONE (23:03)
[2021-08-24] MEDS ORDERED: METOCLOPRAMIDE HCL INJECTION 10 MG/2 ML VIAL ONE (23:10)
[2021-08-24 23:17] LABS: ANISOCYTOSIS 3+; MACROCYTOSIS 0; PLATELET ESTIMATE NORMAL; TARGET CELLS 2+; TEAR DROP CELLS 1+
[2021-08-25] MEDS ORDERED: ALBUTEROL SO4 2.5/IPRATROPIUM 0.5 INH SOL 3 ML VIAL.NEB. NEB ONE ×3 (01:56→01:58)
[2021-08-25] MEDS ORDERED: CEFTRIAXONE 1 GM in DEXTROSE 5%-WATER - 100 ML IVPB ONE (02:01)
[2021-08-25] MEDS ORDERED: CEFTRIAXONE 1 GM/50 ML BAG ONE (02:05)
[2021-08-25 02:59] VITALS: PULSE 108
== END 2021-08-25 03:14 ==
LOC: JER 20:25
PROC: 3E0F7GC Introduction of Other Therapeutic Substance into Respiratory Tract, Via Natural or Artificial Opening (ICD-10-PCS; principal; 2021-08-24)
PROC: 3E03329 Introduction of Other Anti-infective into Peripheral Vein, Percutaneous Approach (ICD-10-PCS; 2021-08-24)
PROC: 3E033GC Introduction of Other Therapeutic Substance into Peripheral Vein, Percutaneous Approach (ICD-10-PCS; 2021-08-24)
DX: R00.2 Palpitations (principal); R06.00 Dyspnea, unspecified; R07.9 Chest pain, unspecified
CPT/HCPCS: 36415; 71045-TC-FY; 71275-TC; 80053; 80307; 81003; 82550; 82553; 84439; 84443; 84484; 84703; 85025; 85379; 86850; 86900; 86901; 93005; 93010; 99285-25